=== PATIENT | male | born 1975 | race Caucasian/White ===

== ENCOUNTER 2022-12-28 17:31 | Emergency (ER) | payer BC ==
[2022-12-28 17:45] VITALS: RESP 18; TEMP 98.3
--- NOTE | 2022-12-28 19:13 | ED ---
General Adult HPI - General Chief complaint: Shortness of Breath Stated complaint: ANNAMARIA Time Seen by Provider: 12/28/22 18:07 Source: patient Mode of arrival: ambulatory Limitations: no limitations - History of Present Illness Initial comments: Patient is a 47-year-old male presenting with chief complaint of difficulty breathing. Patient states that he feels a lump in his throat that has been making it difficult to breathe. He states that he has to focus on breathing calmly and swallowing. Symptoms have been ongoing for about a week. He states that at times he feels like his voice is a bit shaky due to this discomfort. He is still able to eat and drink. No fevers or chills. No chest pain or palpitations. No wheezing. No nausea or vomiting. No abdominal pain. - Related Data Home Medications Medication Instructions Recorded Confirmed Albuterol Sulfate [Albuterol 2 puff PO RT-Q6H PRN 10/31/20 10/31/20 Sulfate Hfa] Buprenorphine HCl/Naloxone HCl 1 film SL DAILY 10/31/20 10/31/20 [Suboxone 8 mg-2 mg Sl Film] Montelukast [Singulair] 10 mg PO DAILY 10/31/20 10/31/20 Previous Rx's Medication Instructions Recorded Budesonide-Formot 160-4.5 Mcg 2 puff INHALATION BID 30 Days #1 11/01/20 [Symbicort 160-4.5 Mcg Inhaler] inhaler hydrOXYzine HCL [Atarax] 50 mg PO Q6H PRN #20 tablet 12/28/22 methylPREDNISolone Dose Pack 4 mg PO DIRECTED #1 packet 12/28/22 [Medrol Dose Pack] Allergies Allergy/AdvReac Type Severity Reaction Status Date / Time Penicillins Allergy Unknown Verified 12/28/22 17:45 Review of Systems ROS Statement: Those systems with pertinent positive or pertinent negative responses have been documented in the HPI. ROS Other: All systems not noted in ROS Statement are negative. Past Medical History Past Medical History: Asthma, COPD, Pneumonia History of Any Multi-Drug Resistant Organisms: None Reported Past Surgical History: Orthopedic Surgery Additional Past Surgical History / Comment(s): Skin graft left foot. Past Psychological History: No Psychological Hx Reported Smoking Status: Former smoker Past Alcohol Use History: Occasional Past Drug Use History: None Reported General Exam Limitations: no limitations General appearance: alert, in no apparent distress Head exam: Present: atraumatic, normocephalic, normal inspection Eye exam: Present: normal appearance, EOMI. Absent: scleral icterus, periorbital swelling Neck exam: Present: normal inspection, full ROM. Absent: tenderness, lymphadenopathy Respiratory exam: Present: normal lung sounds bilaterally. Absent: respiratory distress, wheezes, rales, rhonchi, stridor Cardiovascular Exam: Present: regular rate, normal rhythm, normal heart sounds. Absent: systolic murmur, diastolic murmur, rubs, gallop, clicks Neurological exam: Present: alert, oriented X3, CN II-XII intact Psychiatric exam: Present: normal affect, normal mood Skin exam: Present: warm, dry, intact, normal color. Absent: rash Course Vital Signs 12/28/22 12/28/22 12/28/22 17:38 18:11 21:51 Temperature 98.3 F Pulse Rate 59 L 56 L Respiratory 18 18 18 Rate Blood Pressure 146/86 134/79 O2 Sat by Pulse 96 99 Oximetry Medical Decision Making - Medical Decision Making Was pt. sent in by a medical professional or institution (, PA, MANAGER CAR, urgent care, hospital, or longterm...) When possible be specific @ -No Did you speak to anyone other than the patient for history (EMS, parent, family, police, friend...)? What history was obtained from this source @ -No Did you review nursing and triage notes (agree or disagree)? Why? @ -I reviewed and agree with nursing and triage notes Were old charts reviewed (outside hosp., previous admission, EMS record, old EKG, old radiological studies, urgent care reports/EKG's, longterm records)? Report findings @ -No old charts were reviewed Differential Diagnosis (chest pain, altered mental status, abdominal pain women, abdominal pain men, vaginal bleeding, weakness, fever, dyspnea, syncope, headache, dizziness, GI bleed, back pain, seizure, CVA, palpatations, mental health, musculoskeletal)? @ -MDM Differential Dyspnea: Anxiety, Coronary syndrome, arrhythmia, tamponade, asthma, COPD, pulmonary embolism, pneumonia, pneumothorax, pulmonary effusion, anaphylaxis, diabetic ketoacidosis, flailed chest, pulmonary contusion, diaphragmatic rupture, anemia, neuromuscular this is not meant to be an all-inclusive list. EKG interpreted by me (3pts min.). @ -As above X-rays interpreted by me (1pt min.). @ -None done CT interpreted by me (1pt min.). @ -Soft tissue neck CT shows no acute process U/S interpreted by me (1pt. min.). @ -None done What testing was considered but not performed or refused? (CT, X-rays, U/S, labs)? Why? @ -None What meds were considered but not given or refused? Why? @ -None Did you discuss the management of the patient with other professionals (professionals i.e. DrDonavon, PA, MANAGER CAR, lab, RT, psych nurse, group social worker, bleach machine operator, teacher, chief green officer, ed case manager)? Give summary @ -No Was smoking cessation discussed for >3mins.? @ -No Was critical care preformed (if so, how long)? @ -No Were there social determinants of health that impacted care today? How? (Homelessness, low income, unemployed, alcoholism, drug addiction, transportation, low edu. Level, literacy, decrease access to med. care, long term, rehab)? @ -No Was there de-escalation of care discussed even if they declined (Discuss DNR or withdrawal of care, Hospice)? DNR status @ -No What co-morbidities impacted this encounter? (DM, HTN, Smoking, COPD, CAD, Cancer, CVA, ARF, Chemo, Hep., AIDS, mental health diagnosis, sleep apnea, morbid obesity)? @ -None Was patient admitted / discharged? Hospital course, mention meds given and route, prescriptions, significant lab abnormalities, going to OR and other pertinent info. @ -Discharge. Patient is a 47-year-old male presenting with chief complaint of sensation of swelling in the throat that has been ongoing for about a week. At times it makes him feel short of breath and he states he has to focus when swallowing. Patient has been able to eat and drink throughout this time. Physical examination is unremarkable. Lab work shows WBC 11.8. Sodium 135. CT of soft tissue neck shows no acute process. Patient is educated on these findings. He is instructed to follow-up with GI for endoscopy. Also discussed the possibility of bolus sensation which may have a component of anxiety. He is prescribed hydroxyzine for anxiety. Follow-up with PCP. Report back to ER with any new or worsening symptoms. Discussed return parameters and answered all questions. Patient conveyed verbal understanding and agreed to the plan. I discussed this case in detail with my attending Dr. Will Undiagnosed new problem with uncertain prognosis? @ -No Drug Therapy requiring intensive monitoring for toxicity (Heparin, Nitro, Insulin, Cardizem)? @ -No Were any procedures done? @ -No Diagnosis/symptom? @ -Throat discomfort Acute, or Chronic, or Acute on Chronic? @ -Acute Uncomplicated (without systemic symptoms) or Complicated (systemic symptoms)? @ -uncomplicated Side effects of treatment? @ -No Exacerbation, Progression, or Severe Exacerbation? @ -No Poses a threat to life or bodily function? How? (Chest pain, [place], [place], pneumonia, PE, COPD, DKA, ARF, appy, cholecystitis, CVA, Diverticulitis, Homicidal, Suicidal, threat to staff... and all critical care pts) @ -No - Lab Data Result diagrams: 12/28/22 18:44 12/28/22 18:44 Lab Results 12/28/22 12/28/22 Range/Units 18:44 18:44 WBC 11.8 H (3.8-10.6) k/uL RBC 4.93 (4.30-5.90) m/uL Hgb 14.6 (13.0-17.5) gm/dL Hct 41.4 (39.0-53.0) % MCV 84.0 (80.0-100.0) fL MCH 29.7 (25.0-35.0) pg MCHC 35.4 (31.0-37.0) g/dL RDW 12.6 (11.5-15.5) % Plt Count 341 (150-450) k/uL MPV 7.2 Neutrophils % 75 % Lymphocytes % 16 % Monocytes % 7 % Eosinophils % 0 % Basophils % 0 % Neutrophils # 8.8 H (1.3-7.7) k/uL Lymphocytes # 1.9 (1.0-4.8) k/uL Monocytes # 0.8 (0-1.0) k/uL Eosinophils # 0.0 (0-0.7) k/uL Basophils # 0.0 (0-0.2) k/uL Sodium 135 L (137-145) mmol/L Potassium 4.8 (3.5-5.1) mmol/L Chloride 100 (98-107) mmol/L Carbon Dioxide 24 (22-30) mmol/L Anion Gap 11 mmol/L BUN 20 (9-20) mg/dL Creatinine 0.80 (0.66-1.25) mg/dL Est GFR (CKD-EPI)AfAm >90 (>60 ml/min/1.73 sqM) Est GFR (CKD-EPI)NonAf >90 (>60 ml/min/1.73 sqM) Glucose 106 H (74-99) mg/dL Calcium 9.5 (8.4-10.2) mg/dL Total Bilirubin 0.5 (0.2-1.3) mg/dL AST 24 (17-59) U/L ALT 30 (4-49) U/L Alkaline Phosphatase 90 (38-126) U/L Total Protein 6.9 (6.3-8.2) g/dL Albumin 4.5 (3.5-5.0) g/dL Disposition Clinical Impression: Dysphagia, Throat discomfort Disposition: HOME SELF-CARE Condition: Good Instructions (If sedation given, give patient instructions): Dysphagia (ED) Additional Instructions: Follow-up with PCP and GI. Report back to ER with any new or worsening symptoms. Prescriptions: hydrOXYzine HCL [Atarax] 50 mg PO Q6H PRN #20 tablet PRN Reason: Anxiety methylPREDNISolone Dose Pack [Medrol Dose Pack] 4 mg PO DIRECTED #1 packet Is patient prescribed a controlled substance at d/c from ED?: No Referrals: Tommy Aldana DO [Primary Care Provider] - 1-2 days Yesenia Davis MD [STAFF PHYSICIAN] - 1-2 days Time of Disposition: 21:20
[2022-12-28 19:30] LABS: Basophils % (A) 0 %; Eosinophils % (A) 0 %; HCT 41.4 % (39.0-53.0); HGB 14.6 gm/dL (13.0-17.5); Lymphocytes # (A) 1.9 k/uL (1.0-4.8); Lymphocytes % (A) 16 %; MCH 29.7 pg (25.0-35.0); MCHC 35.4 g/dL (31.0-37.0); Mean Platelet Volume 7.2; Monocytes # (A) 0.8 k/uL (0-1.0); Monocytes % (A) 7 %; Neutrophils # (A) 8.8 k/uL (1.3-7.7); Neutrophils % (A) 75 %; Platelet Count 341 k/uL (150-450); RBC 4.93 m/uL (4.30-5.90); RDW 12.6 % (11.5-15.5); WBC 11.8 k/uL (3.8-10.6)
[2022-12-28 20:05] LABS: ALT 30 U/L (4-49); AST 24 U/L (17-59); African American GFR (CKD) >90 (>60 ml/min/1.73 sqM); Albumin 4.5 g/dL (3.5-5.0); Alkaline Phosphatase 90 U/L (38-126); Anion Gap 11 mmol/L; Blood Urea Nitrogen 20 mg/dL (9-20); Calcium 9.5 mg/dL (8.4-10.2); Carbon Dioxide 24 mmol/L (22-30); Chloride 100 mmol/L (98-107); Glucose 106 mg/dL (74-99); Non-African American GFR(CKD) >90 (>60 ml/min/1.73 sqM); Potassium 4.8 mmol/L (3.5-5.1); Sodium 135 mmol/L (137-145); Total Bilirubin 0.5 mg/dL (0.2-1.3); Total Protein 6.9 g/dL (6.3-8.2)
--- NOTE | 2022-12-28 21:05 | CT ---
EXAMINATION TYPE: CT soft tissue neck w con DATE OF EXAM: 12/28/2022 HISTORY: sensation of foreign body. difficulty swallowing COMPARISON: None CT DLP: 360.7 mGycm. Automated Exposure Control for Dose Reduction was Utilized. TECHNIQUE: CT scan of the neck is performed with IV Contrast, patient injected with 100ml mL of Isovu e 300, axial images are obtained, coronal and sagittal reformatted images are reviewed. FINDINGS: Airway: No gross abnormality seen. Oral cavity, oropharynx, hypopharynx, esophagus: Unremarkable. Parotid/submandibular glands: No gross abnormality seen. Carotid/Vascular Structures: Negative. Osseous Structures: No focal findings. Other: No incidental findings. IMPRESSION: Negative examination.
[2022-12-28 21:52] VITALS: BP 134/79; PULSE 56
== END 2022-12-28 21:52 | disposition home or self-care (01) ==
LOC: EC 17:31
DX: R13.10 Dysphagia, unspecified (principal); J44.9 Chronic obstructive pulmonary disease, unspecified; Z87.891 Personal history of nicotine dependence; Z88.0 Allergy status to penicillin; Z79.899 Other long term (current) drug therapy
CPT/HCPCS: 36415; 93005; 80053; 85025; 70491; 99285; Q9967

== ENCOUNTER → 2023-03-19 | Outpatient (CLI) | payer BC ==
--- NOTE | 2023-03-19 10:18 | FL ---
ESOPHOGRAM. HISTORY: Dysphagia Esophagram was performed per the air contrast technique. The patient swallowed barium and effervesce nt crystals without difficulty or delay. Esophageal peristalsis and motility appear to be within normal limits. There is no evidence for filling defect, mass or diverticulum. No hiatal hernia seen. Subsequently single contrast cervical esophagram was performed which fails demonstrate evidence for a spiration penetration or mass. IMPRESSION: Unremarkable study.
== END | disposition home or self-care (01) ==
LOC: RADUSWWP 09:43
PROVIDERS: ATTEND Otolaryngology
DX: R13.10 Dysphagia, unspecified (principal); R49.0 Dysphonia; R05.9 Cough, unspecified
CPT/HCPCS: 74220

== ENCOUNTER 2023-04-23 06:44 | Observation (INO) | payer BC ==
[2023-04-23 07:13] LABS: Basophils % (A) 0 %; Eosinophils # (A) 0.1 k/uL (0-0.7); Eosinophils % (A) 1 %; HCT 41.3 % (39.0-53.0); HGB 14.4 gm/dL (13.0-17.5); Lymphocytes # (A) 3.2 k/uL (1.0-4.8); Lymphocytes % (A) 32 %; MCH 29.9 pg (25.0-35.0); MCHC 34.9 g/dL (31.0-37.0); MCV 85.8 fL (80.0-100.0); Mean Platelet Volume 7.1; Monocytes # (A) 0.4 k/uL (0-1.0); Monocytes % (A) 4 %; Neutrophils % (A) 61 %; Platelet Count 223 k/uL (150-450); RBC 4.81 m/uL (4.30-5.90); RDW 12.3 % (11.5-15.5); WBC 9.9 k/uL (3.8-10.6)
[2023-04-23 07:22] LABS: Partial Thromboplastin Time 23.4 sec (22.0-30.0); Prothrombin Time 10.4 sec (9.0-12.0)
--- NOTE | 2023-04-23 07:27 | XR ---
EXAMINATION TYPE: XR chest 2V DATE OF EXAM: 04/23/2023 COMPARISON: 10/31/2020 INDICATION: Difficulty breathing short of breath TECHNIQUE: Frontal and lateral views of the chest are obtained. FINDINGS: The heart size is normal. The pulmonary vasculature is normal. The lungs are clear. IMPRESSION: 1. No acute pulmonary process.
[2023-04-23 07:38] LABS: AST 26 U/L (17-59); African American GFR (CKD) >90 (>60 ml/min/1.73 sqM); Albumin 4.5 g/dL (3.5-5.0); Alkaline Phosphatase 72 U/L (38-126); Blood Urea Nitrogen 14 mg/dL (9-20); Calcium 9.5 mg/dL (8.4-10.2); Carbon Dioxide 24 mmol/L (22-30); Glucose 142 mg/dL (74-99); Non-African American GFR(CKD) >90 (>60 ml/min/1.73 sqM); Total Bilirubin 0.7 mg/dL (0.2-1.3); Total Protein 6.9 g/dL (6.3-8.2)
[2023-04-23] MEDS ORDERED: MAG HYDROX/AL HYDROX/SIMETH 30 ML, HYOSCYAMINE ELIXIR 10 ML, LIDOCAINE 2% GLYDO JELLY 1... PO STA ×3 (07:39)
[2023-04-23] MEDS ORDERED: IPRATROPIUM-ALBUTEROL 3 ML NEB INHALATION STA (07:39)
[2023-04-23 07:46] LABS: ALT 36 U/L (4-49)
[2023-04-23] MEDS ORDERED: SODIUM CHLORIDE 0.9% 1,000 ML IV STA ×2 (07:47→09:19)
--- NOTE | 2023-04-23 07:50 | ED ---
General Adult HPI - General Chief complaint: Shortness of Breath Stated complaint: SOB Time Seen by Provider: 04/23/23 07:15 Source: patient, RN notes reviewed, old records reviewed Mode of arrival: ambulatory Limitations: no limitations - History of Present Illness Initial comments: Patient is a 48-year-old male who presents emergency Department complaining of shortness of breath, difficulty swallowing ongoing since December of this year. Has not followed up with any specialist but has seen his primary care. His had multiple ER visits. Prior history of COPD/asthma and prior smoker but he has quit for the last 10 years. Does appear to have occupational exposure as he is exposed to fumes at work as well as when he states chemicals. 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 Unknown if this is related to his current symptoms. States he has a pleuritic substernal chest discomfort has been ongoing as well as a tightening in his throat which is difficult to swallow. Has shortness of breath on exertion. Denies any lower extremity edema, fevers, chills, significant cough. No known sick contacts. No diaphoretic episodes or nausea. His no other acute complaints at this time. Presents for evaluation. - Related Data Home Medications Medication Instructions Recorded Confirmed Buprenorphine-Nalox 8-2 mg Tab 1 tab SUBLINGUAL BID 04/23/23 04/23/23 [Suboxone 8-2 mg Tab] Pantoprazole [Protonix] 40 mg PO DAILY 04/23/23 04/23/23 Allergies Allergy/AdvReac Type Severity Reaction Status Date / Time Penicillins Allergy Unknown Verified 04/23/23 07:52 Childhood Review of Systems ROS Statement: Those systems with pertinent positive or pertinent negative responses have been documented in the HPI. Review of Systems: CONST: Denies fever EYES: Denies blurry vision ENT: Denies nasal congestion C/V: Endorses pleuritic chest pain RESP: Endorses exertional shortness of breath GI: Denies abdominal pain : Denies dysuria SKIN: Denies rash. MSK: Denies joint pain. NEURO: Denies headache ROS Other: All systems not noted in ROS Statement are negative. Past Medical History Past Medical History: Asthma, COPD, Pneumonia History of Any Multi-Drug Resistant Organisms: None Reported Past Surgical History: Orthopedic Surgery Additional Past Surgical History / Comment(s): Skin graft left foot. Past Psychological History: No Psychological Hx Reported Smoking Status: Former smoker Past Alcohol Use History: Occasional Past Drug Use History: None Reported General Exam - General Exam Comments Initial Comments: General: Appears in no acute distress. HEAD: Normal with no signs of head trauma. EYES: PERRLA, EOMI, conjunctiva normal, no discharge. ENT: Hearing grossly intact, normal oropharynx. RESPIRATORY: Clear breath sounds bilaterally. No wheezes, rales, or rhonchi. No hypoxia at rest. No increased work of breathing at rest. C/V: Regular rate and rhythm. S1 and S2 auscultated, no edema, peripheral pulses 2+ and intact throughout ABD: Abd is soft, nontender, nondistended EXT: Normal range of motion, no obvious deformity SKIN: No rashes or lesions observed on exposed skin. NEURO: Alert and oriented 4. Limitations: no limitations Course Vital Signs 04/23/23 04/23/23 04/23/23 06:44 07:00 07:52 Temperature 98.6 F Pulse Rate 76 74 102 H Respiratory 18 23 20 Rate Blood Pressure 164/103 148/84 145/90 O2 Sat by Pulse 99 97 97 Oximetry 04/23/23 04/23/23 08:08 08:17 Temperature Pulse Rate 65 67 Respiratory Rate Blood Pressure O2 Sat by Pulse Oximetry Medical Decision Making - Medical Decision Making Was pt. sent in by a medical professional or institution (, PA, NON FOOD RECEIVING CLERK, urgent care, hospital, or group home...) When possible be specific @ -No Did you speak to anyone other than the patient for history (EMS, parent, family, police, friend...)? What history was obtained from this source @ -No Did you review nursing and triage notes (agree or disagree)? Why? @ -I reviewed and agree with nursing and triage notes Were old charts reviewed (outside hosp., previous admission, EMS record, old EKG, old radiological studies, urgent care reports/EKG's, group home records)? Report findings @ -Reviewed old EKGs from 2020 as well as December 2022. Differential Diagnosis (chest pain, altered mental status, abdominal pain women, abdominal pain men, vaginal bleeding, weakness, fever, dyspnea, syncope, headache, dizziness, GI bleed, back pain, seizure, CVA, palpatations, mental health, musculoskeletal)? @ -Differential Dyspnea: Coronary syndrome, arrhythmia, tamponade, asthma, COPD, pulmonary embolism, pn eumonia, pneumothorax, pulmonary effusion, anaphylaxis, diabetic ketoacidosis, flailed chest, pulmonary contusion, diaphragmatic rupture, anemia, neuromuscular, this is not meant to be an all-inclusive list. EKG interpreted by me (3pts min.). @ -As above X-rays interpreted by me (1pt min.). @ -Chest x-ray reveals no obvious acute cardiopulmonary process. CT interpreted by me (1pt min.). @ -Chest CT reveals no obvious acute cardio pulmonary process. Does show chronic findings including emphysema. U/S interpreted by me (1pt. min.). @ -None done What testing was considered but not performed or refused? (CT, X-rays, U/S, la bs)? Why? @ -None What meds were considered but not given or refused? Why? @ -None Did you discuss the management of the patient with other professionals (professionals i.e. Dr., PA, NON FOOD RECEIVING CLERK, lab, RT, psych nurse, outreach and education social worker, florist's decorator, teacher, child support case officer, director case)? Give summary @ -Discussed with the admitting physician, Dr. Lundberg of [facility] who accepted the patient. Patient also requested he be admitted to [facility], who is Dr. Lundberg. Was smoking cessation discussed for >3mins.? @ -No Was critical care preformed (if so, how long)? @ -No Were there social determinants of health that impacted care today? How? (Homelessness, low income, unemployed, alcoholism, drug addiction, transportation, low edu. Level, literacy, decrease access to med. care, long term, rehab)? @ -No Was there de-escalation of care discussed even if they declined (Discuss DNR or withdrawal of care, Hospice)? DNR status @ -No What co-morbidities impacted this encounter? (DM, HTN, Smoking, COPD, CAD, Cancer, CVA, ARF, Chemo, Hep., AIDS, mental health diagnosis, sleep apnea, morbid obesity)? @ -None Was patient admitted / discharged? Hospital course, mention meds given and route, prescriptions, significant lab abnormalities, going to OR and other pertinent info. @ -Based on the patient's presentation and physical exam, I'm concerned for possible cardiac pulmonary etiology for his symptoms. This could be chronic. Could Be related to occupational exposure as well. Vital signs at rest within acceptable limits. We will is infected to the patient with a DuoNeb as well as a GI cocktail and obtained an ambulatory pulse ox. We will obtain a cardiopulmonary labs, chest x-ray, and likely CT chest. Patient was in agreement this plan. EKG shows no signs of acute ischemia and chronic changes.Patient's imaging including chest CT is unremarkable. Patient's labs show a normal d-dimer, and undetectable troponin, normal BNP. Patient appears mildly dehydrated with a lactic acidosis of 3.3. Vital signs negative. Remainder of the labs within acceptable limits. Patient's laboratory pulse ox, while normal results and the patient feeling dyspneic. Has clinical exertional dyspnea. Unknown etiology at this time. I discussed his workup with him. I recommended admission for echo as well as evaluation by pulmonology. He was in agreement this plan. We will continue fluid hydration for his lactic acidosis which I suspect is secondary to dehydration and not infection. Patient requests he be admitted to the [facility], which is also on for city call. I spoke with on-call physician Dr. Lundberg who accepted the admission. Undiagnosed new problem with uncertain prognosis? @ -Yes Drug Therapy requiring intensive monitoring for toxicity (Heparin, Nitro, Insulin, Cardizem)? @ -No Were any procedures done? @ -No Diagnosis/symptom? @ -Exertional dyspnea of unknown etiology, dehydration Acute, or Chronic, or Acute on Chronic? @ -Acute Uncomplicated (without systemic symptoms) or Complicated (systemic symptoms)? @ -Complicated Side effects of treatment? @ -none Exacerbation, Progression, or Severe Exacerbation] @ -no Poses a threat to life or bodily function? @ -Potentially - Lab Data Result diagrams: 04/23/23 06:59 04/23/23 06:59 Lab Results 04/23/23 04/23/23 04/23/23 Range/Units 06:59 06:59 06:59 WBC 9.9 (3.8-10.6) k/uL RBC 4.81 (4.30-5.90) m/uL Hgb 14.4 (13.0-17.5) gm/dL Hct 41.3 (39.0-53.0) % MCV 85.8 (80.0-100.0) fL MCH 29.9 (25.0-35.0) pg MCHC 34.9 (31.0-37.0) g/dL RDW 12.3 (11.5-15.5) % Plt Count 223 (150-450) k/uL MPV 7.1 Neutrophils % 61 % Lymphocytes % 32 % Monocytes % 4 % Eosinophils % 1 % Basophils % 0 % Neutrophils # 6.0 (1.3-7.7) k/uL Lymphocytes # 3.2 (1.0-4.8) k/uL Monocytes # 0.4 (0-1.0) k/uL Eosinophils # 0.1 (0-0.7) k/uL Basophils # 0.0 (0-0.2) k/uL PT 10.4 (9.0-12.0) sec INR 1.0 (<1.2) APTT 23.4 (22.0-30.0) sec D-Dimer (<0.60) mg/L FEU Sodium 134 L (137-145) mmol/L Potassium 3.5 (3.5-5.1) mmol/L Chloride 99 (98-107) mmol/L Carbon Dioxide 24 (22-30) mmol/L Anion Gap 11 mmol/L BUN 14 (9-20) mg/dL Creatinine 0.79 (0.66-1.25) mg/dL Est GFR (CKD-EPI)AfAm >90 (>60 ml/min/1.73 sqM) Est GFR (CKD-EPI)NonAf >90 (>60 ml/min/1.73 sqM) Glucose 142 H (74-99) mg/dL Plasma Lactic Acid Ismael (0.7-2.0) mmol/L Calcium 9.5 (8.4-10.2) mg/dL Total Bilirubin 0.7 (0.2-1.3) mg/dL AST 26 (17-59) U/L ALT 36 (4-49) U/L Alkaline Phosphatase 72 (38-126) U/L Troponin I (0.000-0.034) ng/mL NT-Pro-B Natriuret Pep pg/mL Total Protein 6.9 (6.3-8.2) g/dL Albumin 4.5 (3.5-5.0) g/dL Influenza Type A (PCR) (Not Detectd) Influenza Type B (PCR) (Not Detectd) RSV (PCR) (Not Detectd) SARS-CoV-2 (PCR) (Not Detectd) 04/23/23 04/23/23 04/23/23 Range/Units 06:59 06:59 06:59 WBC (3.8-10.6) k/uL RBC (4.30-5.90) m/uL Hgb (13.0-17.5) gm/dL Hct (39.0-53.0) % MCV (80.0-100.0) fL MCH (25.0-35.0) pg MCHC (31.0-37.0) g/dL RDW (11.5-15.5) % Plt Count (150-450) k/uL MPV Neutrophils % % Lymphocytes % % Monocytes % % Eosinophils % % Basophils % % Neutrophils # (1.3-7.7) k/uL Lymphocytes # (1.0-4.8) k/uL Monocytes # (0-1.0) k/uL Eosinophils # (0-0.7) k/uL Basophils # (0-0.2) k/uL PT (9.0-12.0) sec INR (<1.2) APTT (22.0-30.0) sec D-Dimer 0.24 (<0.60) mg/L FEU Sodium (137-145) mmol/L Potassium (3.5-5.1) mmol/L Chloride (98-107) mmol/L Carbon Dioxide (22-30) mmol/L Anion Gap mmol/L BUN (9-20) mg/dL Creatinine (0.66-1.25) mg/dL Est GFR (CKD-EPI)AfAm (>60 ml/min/1.73 sqM) Est GFR (CKD-EPI)NonAf (>60 ml/min/1.73 sqM) Glucose (74-99) mg/dL Plasma Lactic Acid Ismael 3.3 H* (0.7-2.0) mmol/L Calcium (8.4-10.2) mg/dL Total Bilirubin (0.2-1.3) mg/dL AST (17-59) U/L ALT (4-49) U/L Alkaline Phosphatase (38-126) U/L Troponin I <0.012 (0.000-0.034) ng/mL NT-Pro-B Natriuret Pep pg/mL Total Protein (6.3-8.2) g/dL Albumin (3.5-5.0) g/dL Influenza Type A (PCR) (Not Detectd) Influenza Type B (PCR) (Not Detectd) RSV (PCR) (Not Detectd) SARS-CoV-2 (PCR) (Not Detectd) 04/23/23 04/23/23 Range/Units 06:59 07:25 WBC (3.8-10.6) k/uL RBC (4.30-5.90) m/uL Hgb (13.0-17.5) gm/dL Hct (39.0-53.0) % MCV (80.0-100.0) fL MCH (25.0-35.0) pg MCHC (31.0-37.0) g/dL RDW (11.5-15.5) % Plt Count (150-450) k/uL MPV Neutrophils % % Lymphocytes % % Monocytes % % Eosinophils % % Basophils % % Neutrophils # (1.3-7.7) k/uL Lymphocytes # (1.0-4.8) k/uL Monocytes # (0-1.0) k/uL Eosinophils # (0-0.7) k/uL Basophils # (0-0.2) k/uL PT (9.0-12.0) sec INR (<1.2) APTT (22.0-30.0) sec D-Dimer (<0.60) mg/L FEU Sodium (137-145) mmol/L Potassium (3.5-5.1) mmol/L Chloride (98-107) mmol/L Carbon Dioxide (22-30) mmol/L Anion Gap mmol/L BUN (9-20) mg/dL Creatinine (0.66-1.25) mg/dL Est GFR (CKD-EPI)AfAm (>60 ml/min/1.73 sqM) Est GFR (CKD-EPI)NonAf (>60 ml/min/1.73 sqM) Glucose (74-99) mg/dL Plasma Lactic Acid Ismael (0.7-2.0) mmol/L Calcium (8.4-10.2) mg/dL Total Bilirubin (0.2-1.3) mg/dL AST (17-59) U/L ALT (4-49) U/L Alkaline Phosphatase (38-126) U/L Troponin I (0.000-0.034) ng/mL NT-Pro-B Natriuret Pep 60 pg/mL Total Protein (6.3-8.2) g/dL Albumin (3.5-5.0) g/dL Influenza Type A (PCR) Not Detected (Not Detectd) Influenza Type B (PCR) Not Detected (Not Detectd) RSV (PCR) Not Detected (Not Detectd) SARS-CoV-2 (PCR) Not Detected (Not Detectd) - EKG Data -: EKG Interpreted by Me EKG Comments: 12-lead Electrocardiogram Interpretation Note EKG was reviewed and interpreted by myself. 12-lead ECG performed at 0654 is interpreted by me as revealing normal sinus rhythm at a rate of 66 beats per minute. [place] is normal. CA interval is 116 ms, QRS duration is 117 ms, QTc is 398 ms.. There is a chronic T-wave inversion in lead III. More acute T-wave inversion in lead aVF not seen on prior EKGs when compared with EKG from December 2022. However the T-wave inversion is demonstrated on EKGs from November 2020. Also appears to be chronic. No other obvious acute ST segment or T-wave abnormalities to suggest acute ischemia at this time.. R wave progression across the precordium was satisfactory. Disposition Clinical Impression: Dyspnea, Dehydration Disposition: ADMITTED IP TO THIS HOSP Condition: Stable Referrals: Tommy Aldana DO [Primary Care Provider] - 1-2 days Time of Disposition: 09:01
[2023-04-23 08:06] LABS: Anion Gap 11 mmol/L; Chloride 99 mmol/L (98-107); Potassium 3.5 mmol/L (3.5-5.1); Sodium 134 mmol/L (137-145)
[2023-04-23] MEDS ORDERED: RX INFO: IV CONTRAST WAS GIVEN 1 EACH MISC MISCELLANE PRN (08:25)
--- NOTE | 2023-04-23 08:53 | CT ---
EXAMINATION TYPE: CT chest w con DATE OF EXAM: 04/23/2023 COMPARISON: Radiograph same day HISTORY: 48-year-old male shortness of breath, DYSPNEA TECHNIQUE: Contiguous axial scanning of the chest after the administration of 100 mL of Isovue 300. Coronal/sagittal reconstructions performed. CT DLP: 461.1mGycm. Automatic exposure control utilized for a dose reduction. FINDINGS: The heart is normal size without pericardial effusion. Ectatic aortic root at 3.8 cm. Bovine configuration to the aortic arch. No thoracic lymphadenopathy by CT size criteria. Mild dependent atelectasis posteriorly in the lungs. Minimal septal emphysema in the upper lungs. No consolidation or pleural effusion. Visualized upper abdomen shows a small hilar splenule. Bones: No osseous destructive process. IMPRESSION: 1. COPD with minimal emphysema. 2. Mild dependent atelectasis. Otherwise, no acute pulmonary process seen.
[2023-04-23] MEDS ORDERED: NALOXONE 0.4 MG/ML 1 ML VIAL IV PRN (09:20)
--- NOTE | 2023-04-23 10:29 | P.HPIM ---
History of Present Illness H&P Date: 04/23/23 History of Presenting Illness: Patient is a very pleasant 48-year-old male with a past medical history of asthma and former nicotine use. He presented to the emergency department with a chief complaint of shortness of breath and dysphagia. Patient reports the symptoms began approximately 4 months ago and progressively worsened. Patient reports shortness of breath at rest and worsening with exertion and/or position. In addition patient reports feeling as though something is stuck in his throat and/or chest described feeling as a lump that has resulted in difficulty swal lowing as well as painful swallowing at times. Patient reports he was evaluated back in December in the emergency department for similar complaint when this began and was referred to an ENT physician. Patient reports he followed up with the ENT doctor and underwent a barium swallow test which resulted is an unremarkable study. He reports despite evaluation he has progressively worsened and he is n ow experiencing pain in his lungs upon breathing accompanied by dizziness/lightheadedness. He denies having any increased cough but does state he has noticed thickened secretions feeling as though he is always needing to clear his throat. Patient's at bedside states his breathing has gotten so bad that he had to miss their planned family trip. Patient reports last night and throughout this morning his breathing seemed to worsen and just walking the trash can to the curb resulted in significant shortness of breath and diaphoresis with a prolonged recovery time. He reports his lungs actually hurt to breathe so his made him come back to the emergency department for evaluation. He denies any fevers, chills, headaches, palpitations, hemoptysis, nausea or vomiting, or experiencing any numbness/tingling/weakness/swelling in his extremities. He underwent full evaluation in the emergency department. EKG was completed showing sinus rhythm at 66 bpm with T-wave inversion in inferior leads 2, 3, and aVF and when compared to EKG completed 12/28/22 T-wave inversion was only present in lead III. Labs were completed and reviewed. CBC unremarkable. Coagulation profile normal findings including d-dimer of 0.24. BMP showing mild hyponatremia with sodium of 134. Glucose 142. Liver enzymes unremarkable. Troponin normal findings at less than 0.012 and a proBNP of 60 and lactic acid elevated at 3.3. Influenza A, influenza B, RSV, and Covid were all negative. Chest x-ray negative for acute cardiopulmonary process. CT chest showing minimal septal emphysema in the upper lungs and signs of COPD along with mild dependent atelectasis. Patient was admitted under our services of consultation to pulmonology, cardiology, and general surgery. Review of systems: Pertinent positives and negatives as discussed in HPI, a complete review of systems was performed and all other systems are negative. Physical exam: Vital signs reviewed and stable. General: Nontoxic, no distress and appears stated age. Derm: Skin warm and dry, normal coloration for ethnicity. Head: Atraumatic, normocephalic and symmetric. Eyes: EOMs intact, no lid lag, and anicteric sclera Mouth: no lip lesions, mucus membranes moist Cardiovascular: regular rate and rhythm with normal S1S2, no murmur, positive posterior tibial pulses bilaterally, and cap refill < 2 seconds. Lungs: Respirations even, regular, and unlabored on room air. Lungs CTA bilaterally, no rhonchi, no rales, no wheezing, and no accessory muscle usage. Abdominal: soft, nontender to palpation, no guarding, no appreciable or ganomegaly Ext: ROM intact. No gross muscle atrophy, no edema, no contractures Neuro: Speech clear, face symmetrical and CN II-XII grossly intact with no noted focal neuro deficits Psych: Alert and oriented to person, place, time, and situation. Appropriate and pleasant affect. Assessment and Plan of Care: Shortness of breath Exertional dyspnea EKG changes, T-wave inversion in inferior leads History of asthma and concerns of underlying COPD History of nicotine dependence, quit smoking 11 years ago -Consult to Pulmonology -Consult to Cardiology -Telemetry monitoring. -Duonebs scheduled four times daily along with every 2 hours as needed for SOB and/or wheezing -Steroids: Solu-Medrol 125 mg 1 dose -Echocardiogram to be completed Dysphasia and odynophagia -Gen. surgery consulted and discussed plan of care with general surgeon. -GI prophylaxis with Protonix 40 mg daily -Patient scheduled to undergo EGD tomorrow morning with Dr. Yadav. The patient is admitted with an anticipated less than 2 midnight stay for evaluation of shortness of breath CODE STATUS: Full code DVT prophylaxis: Lovenox Discussed with: patient, patient's , ED physician, general surgeon, and RN Anticipated discharge date: clinical course to determine Anticipated discharge place: : Home Patient was seen independently by Nurse Practitioner. This document was prepared using [employer] dictation software. Please allow for errors in log operations coordinator while rare they do occur. I reviewed the documentation as provided by the ROCK above, who is the original author of this note. I agree with the documented assessment and plan, with the following changes: none Past Medical History Past Medical History: Asthma, COPD, Pneumonia History of Any Multi-Drug Resistant Organisms: None Reported Past Surgical History: Orthopedic Surgery Additional Past Surgical History / Comment(s): Skin graft left foot. Past Psychological History: No Psychological Hx Reported Smoking Status: Former smoker Past Alcohol Use History: Occasional Past Drug Use History: None Reported - Past Family History Mother Additional Family Medical History / Comment(s): cardiac arrythmia Father Family Medical History: COPD Additional Family Medical History / Comment(s): healthy still living Medications and Allergies Home Medications Medication Instructions Recorded Confirmed Type Buprenorphine-Nalox 8-2 mg Tab 1 tab SUBLINGUAL BID 04/23/23 04/23/23 History [Suboxone 8-2 mg Tab] Pantoprazole [Protonix] 40 mg PO DAILY 04/23/23 04/23/23 History Allergies Allergy/AdvReac Type Severity Reaction Status Date / Time Penicillins Allergy Unknown Verified 04/23/23 07:52 Childhood Physical Exam Vitals: Vital Signs Temp Pulse Resp BP Pulse Ox 04/23/23 08:17 67 04/23/23 08:08 65 04/23/23 07:52 102 H 20 145/90 97 04/23/23 07:00 74 23 148/84 97 04/23/23 06:44 98.6 F 76 18 164/103 99 Intake and Output 04/22/23 04/23/23 04/23/23 22:59 06:59 14:59 Other: Weight 90.718 kg Results CBC & Chem 7: 04/23/23 06:59 04/23/23 06:59 Labs: Abnormal Lab Results - Last 24 Hours (Table) 04/23/23 04/23/23 Range/Units 06:59 06:59 Sodium 134 L (137-145) mmol/L Glucose 142 H (74-99) mg/dL Plasma Lactic Acid Ismael 3.3 H* (0.7-2.0) mmol/L
--- NOTE | 2023-04-23 11:24 | P.GSCN ---
History of Present Illness Consult date: 04/23/23 History of present illness: CHIEF COMPLAINT: Difficulty swallowing HISTORY OF PRESENT ILLNESS: This is a 48-year-old male who presented with complaints of difficulty swallowing 4 months. Sometimes he has pain with swallowing. He reports having more difficulty with solid foods. He reports after eating he'll get a lump in his throat and has to continuously drink water to help push. He denies any vomiting. Denies any regurgitation. He had a barium swallow done in March which was unremarkable. He's never had an EGD completed. Does have a prior history of smoking. Denies any alcohol use. Denies any weight loss. Patient does report taking Protonix daily. Denies any surgical history. Denies any abdominal pain. PAST MEDICAL HISTORY: See below PAST SURGICAL HISTORY: See below MEDICATIONS: See below ALLERGIES: See below SOCIAL HISTORY: No illicit drug use. REVIEW OF SYSTEMS: CONSTITUTIONAL: Denies fever or chills. HEENT: Denies blurred vision, vision changes, or eye pain. Denies hemoptysis CARDIOVASCULAR: Denies chest pain or pressure. RESPIRATORY: No shortness of breath. GASTROINTESTINAL: See HPI for pertinent findings HEMATOLOGIC: Denies bleeding disorders. GENITOURINARY: Denies any blood in urine or increased urinary frequency. SKIN: Denies pruitis. Denies rash. PHYSICAL EXAM: VITAL SIGNS: Reviewed GENERAL: Well-developed in no acute distress. ABDOMEN: Soft. Nondistended. Nontender NEUROLOGIC: Alert and oriented. Cranial nerves II through XII grossly intact. LABORATORY DATA: WBC 9.9 Hgb 14.4 platelets 223 Sodium 134 potassium 3.5 creatinine 0.79 Lactic acid 3.3 Influenza, RSV and Covid not detected IMAGING: CT chest COPD with minimal emphysema. Mildly dependent atelectasis. No acute pulmonary process. ASSESSMENT: 1. Dysphagia and odynophagia PLAN: -Patient scheduled for EGD tomorrow with Dr. 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 Signing provider agrees with the documented findings, assessment, and plan of care. Past Medical History Past Medical History: Asthma, COPD, Pneumonia History of Any Multi-Drug Resistant Organisms: None Reported Past Surgical History: Orthopedic Surgery Additional Past Surgical History / Comment(s): Skin graft left foot. Past Psychological History: No Psychological Hx Reported Smoking Status: Former smoker Past Alcohol Use History: Occasional Past Drug Use History: None Reported Medications and Allergies Home Medications Medication Instructions Recorded Confirmed Type Buprenorphine-Nalox 8-2 mg Tab 1 tab SUBLINGUAL BID 04/23/23 04/23/23 History [Suboxone 8-2 mg Tab] Pantoprazole [Protonix] 40 mg PO DAILY 04/23/23 04/23/23 History Allergies Allergy/AdvReac Type Severity Reaction Status Date / Time Penicillins Allergy Unknown Verified 04/23/23 07:52 Childhood Surgical - Exam Vital Signs Temp Pulse Resp BP Pulse Ox 98.6 F 76 18 164/103 99 04/23/23 06:44 04/23/23 06:44 04/23/23 06:44 04/23/23 06:44 04/23/23 06:44 Results - Labs 04/23/23 06:59 04/23/23 06:59 Abnormal Lab Results - Last 24 Hours (Table) 04/23/23 04/23/23 Range/Units 06:59 06:59 Sodium 134 L (137-145) mmol/L Glucose 142 H (74-99) mg/dL Plasma Lactic Acid Ismael 3.3 H* (0.7-2.0) mmol/L Diabetes panel 04/23/23 Range/Units 06:59 Sodium 134 L (137-145) mmol/L Potassium 3.5 (3.5-5.1) mmol/L Chloride 99 (98-107) mmol/L Carbon Dioxide 24 (22-30) mmol/L BUN 14 (9-20) mg/dL Creatinine 0.79 (0.66-1.25) mg/dL Glucose 142 H (74-99) mg/dL Calcium 9.5 (8.4-10.2) mg/dL AST 26 (17-59) U/L ALT 36 (4-49) U/L Alkaline Phosphatase 72 (38-126) U/L Total Protein 6.9 (6.3-8.2) g/dL Albumin 4.5 (3.5-5.0) g/dL Calcium panel 04/23/23 Range/Units 06:59 Calcium 9.5 (8.4-10.2) mg/dL Albumin 4.5 (3.5-5.0) g/dL Pituitary panel 04/23/23 Range/Units 06:59 Sodium 134 L (137-145) mmol/L Potassium 3.5 (3.5-5.1) mmol/L Chloride 99 (98-107) mmol/L Carbon Dioxide 24 (22-30) mmol/L BUN 14 (9-20) mg/dL Creatinine 0.79 (0.66-1.25) mg/dL Glucose 142 H (74-99) mg/dL Calcium 9.5 (8.4-10.2) mg/dL Adrenal panel 04/23/23 Range/Units 06:59 Sodium 134 L (137-145) mmol/L Potassium 3.5 (3.5-5.1) mmol/L Chloride 99 (98-107) mmol/L Carbon Dioxide 24 (22-30) mmol/L BUN 14 (9-20) mg/dL Creatinine 0.79 (0.66-1.25) mg/dL Glucose 142 H (74-99) mg/dL Calcium 9.5 (8.4-10.2) mg/dL Total Bilirubin 0.7 (0.2-1.3) mg/dL AST 26 (17-59) U/L ALT 36 (4-49) U/L Alkaline Phosphatase 72 (38-126) U/L Total Protein 6.9 (6.3-8.2) g/dL Albumin 4.5 (3.5-5.0) g/dL
[2023-04-23] MEDS ORDERED: IPRATROPIUM-ALBUTEROL 3 ML NEB INHALATION PRN (13:51)
[2023-04-23] MEDS ORDERED: methylPREDNISolone SOD SUCCI 125 MG/2 ML VIAL IV STA (13:52)
[2023-04-23] MEDS: IPRATROPIUM-ALBUTEROL 3 ML NEB INHALATION SCH ×2 (16:21→20:21)
--- NOTE | 2023-04-23 16:36 | CT ---
EXAMINATION TYPE: CT sinus wo con DATE OF EXAM: 04/23/2023 COMPARISON: None HISTORY: 48-year-old male shortness of breath, dyspnea, dysphagia CT DLP: 795 mGycm Automated exposure control for dose reduction was used. TECHNIQUE: Noncontrast axial views of the paranasal sinuses were obtained. Coronal and sagittal refor matted images are obtained. FINDINGS: PARANASAL SINUSES: There is moderate to severe mucosal thickening with opacification in the left maxillary sinus. Associ ated calcifications are present here. Scattered mild mucosal thickening ethmoid air cells. Otherwise, the sphenoid sinuses, frontal sinuses, right maxillary sinus appear well pneumatized There is no air-fluid level. Reactive larry- osteogenesis is not seen. There is no destruction of the osseous capone of the paranasal sinuses. THE NASAL CAVITY: The right osteomeatal complex is patent. There is prominent mucosal thickening at the left maxillary infundibulum. Leftward nasal septal deviation. The imaged brain and orbits are normal in appearance. Mastoid air cells and middle ear cavities are well pneumatized. Reformatted images confirm above findings. IMPRESSION: 1. Moderate to severe chronic left maxillary sinus disease. There are associated calcifications withi n the area of partial opacification. Correlate for superimposed aspergillus infection. 2. Scattered mild chronic ethmoid sinus disease. 3. Leftward nasal septal deviation.
--- NOTE | 2023-04-23 17:30 | P.CNPUL ---
History of Present Illness Consult date: 04/23/23 Reason for consult: dyspnea History of present illness: This is a 48-year-old male patient was having shortness of breath for the past 4 months that his breathing has been progressively getting worse. He shortness of breath is associated base other symptoms including difficulties in swallowing, difficulties in breathing through his nose and drainage, and episodes of fatigue and weakness and feeling diaphoretic. He also has discomfort across his chest mainly anterior and he feels better when he needs to the front. He is currently having difficulties to the point where he states that he is unable to do her activities of day-to-day life. Walking short distances such as on the make this patient short of breath and very fatigued and tired. He feels that he cannot catch his breath. He also states that his throat is irritated and he has a lump in his back of his throat and is having difficulties also in swallowing. No recurrent pneumonias. He is a nonsmoker. No 71 chronic lung disease. No pleurisy. No hemoptysis. No swelling lower extremity is. Does not utilize any form of respiratory medications or inhalers. 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 He has been infected with Covid 19 in the past and his current vital screening including Covid 19, RSV and influenza were all negative. His current pulse ox is 99% on room air oxygen. He does not desaturate with activity. Rest of the blood work shows that the risk of 9.9, hemoglobin is 14.4, d-dimer is at 0.24 in the coagulation profile was normal. His lactic acid level was at 3.3 at time of admission dropped down to 1.1. Electrolytes are normal. Liver function tests are normal. His chest x-rays within normal limits. CT angiogram is negative. EKG showing normal sinus rhythm. The patient undergone an echocardiogram and a cardiac stress test approximately 2 years ago and did fine without any major difficulties. He has no fever. No chills. No sputum production. No hemoptysis. No other complaints otherwise. Review of Systems Constitutional: Reports fatigue, Reports weakness Eyes: denies as per HPI, denies blurred vision, denies bulging eye, denies decreased vision, denies diplopia, denies discharge, denies dry eye, denies irritation, denies itching, denies pain, denies photophobia, denies loss of peripheral vision, denies loss of vision, denies tunnel vision/blind spots Ears: deny: decreased hearing, ear discharge, earache, tinnitus Ears, nose, mouth and throat: Reports as per HPI Breasts: absent: as per HPI, gynecomastia Cardiovascular: Reports decreased exercise tolerance, Reports dyspnea on exertion Respiratory: Reports dyspnea Gastrointestinal: Reports as per HPI (Dysphagia) Genitourinary: Reports as per HPI Musculoskeletal: Reports as per HPI Musculoskeletal: absent: ankle pain, ankle stiffness, ankle swelling, as per HPI, elbow pain, elbow stiffness, elbow swelling, foot pain, foot stiffness, foot swelling, hand pain, hand stiffness, hand swelling, hip pain, hip stiffness, hip swelling, knee pain, knee stiffness, knee swelling, shoulder pain, shoulder stiffness, shoulder swelling, wrist pain, wrist stiffness, wrist swelling Integumentary: Reports as per HPI Neurological: Reports as per HPI Psychiatric: Reports as per HPI Endocrine: Reports as per HPI Hematologic/Lymphatic: Reports as per HPI Allergic/Immunologic: Reports as per HPI Past Medical History History of Any Multi-Drug Resistant Organisms: None Reported Past Surgical History: Orthopedic Surgery Additional Past Surgical History / Comment(s): Skin graft left foot. Past Anesthesia/Blood Transfusion Reactions: No Reported Reaction Past Psychological History: No Psychological Hx Reported Smoking Status: Former smoker Past Alcohol Use History: Occasional Past Drug Use History: None Reported - Past Family History Mother Additional Family Medical History / Comment(s): cardiac arrythmia Father Family Medical History: COPD Additional Family Medical History / Comment(s): healthy still living Medications and Allergies Home Medications Medication Instructions Recorded Confirmed Type Buprenorphine-Nalox 8-2 mg Tab 1 tab SUBLINGUAL BID 04/23/23 04/23/23 History [Suboxone 8-2 mg Tab] Pantoprazole [Protonix] 40 mg PO DAILY 04/23/23 04/23/23 History Allergies Allergy/AdvReac Type Severity Reaction Status Date / Time Penicillins Allergy Unknown Verified 04/23/23 07:52 Childhood Physical Exam Vitals: Vital Signs Temp Pulse Pulse Resp BP BP Pulse Ox 04/23/23 16:35 72 04/23/23 16:23 68 04/23/23 15:00 97.9 F 68 16 119/78 99 04/23/23 12:56 97.9 F 60 16 152/100 99 04/23/23 12:06 57 L 19 131/89 94 L 04/23/23 11:30 60 14 143/100 94 L 04/23/23 11:00 63 12 140/90 95 04/23/23 10:30 60 15 152/99 04/23/23 10:00 65 15 142/112 97 04/23/23 09:30 67 13 150/97 94 L 04/23/23 09:00 72 12 152/90 95 04/23/23 08:30 72 13 160/113 96 04/23/23 08:17 67 04/23/23 08:08 65 04/23/23 08:00 77 16 145/90 97 04/23/23 07:52 102 H 20 145/90 97 04/23/23 07:30 79 18 148/84 96 04/23/23 07:00 74 23 148/84 97 04/23/23 06:44 98.6 F 76 18 164/103 99 Intake and Output 04/23/23 04/23/23 04/23/23 06:59 14:59 22:59 Other: Weight 90.718 kg 90.718 kg The patient appeared well nourished and normally developed. Vital signs as documented. Head exam is unremarkable. No scleral icterus or corneal arcus noted. Neck is without jugular venous distension, thyromegaly, or carotid bruits. Carotid upstrokes are brisk bilaterally. Lungs are clear to auscultation and percussion. Cardiac exam reveals the PMI to be normally sized and situated. Rhythm is regular. First and second heart sounds normal. No murmurs, rubs or gallops. Abdominal exam reveals normal bowel sounds, no masses, no organomegaly and no aortic enlargement. Extremities are nonedematous and both femoral and pe murray pulses are normal.Examination of the skin revealed no evidence of significant rashes, suspicious appearing nevi or other concerning lesions.Neurologically, the patient is awake and alert and the patient does not have any focal neurological deficit. Cranial nerves are essentially intact. Results - Laboratory Findings CBC and BMP: 04/23/23 06:59 04/23/23 06:59 PT/INR, D-dimer PT 10.4 sec (9.0-12.0) 04/23/23 06:59 INR 1.0 (<1.2) 04/23/23 06:59 D-Dimer 0.24 mg/L FEU (<0.60) 04/23/23 06:59 Abnormal lab findings: Abnormal Labs 04/23/23 04/23/23 06:59 06:59 Sodium 134 L Glucose 142 H Plasma Lactic Acid Ismael 3.3 H* - Diagnostic Findings Chest x-ray: image reviewed CT scan - chest: image reviewed Assessment and Plan Plan: Subacute shortness of breath, unexplained by physical findings. No identifiable pulmonary pathology at this point in time. Chest x-ray, CT of the chest, and lung examination are all within normal limits. No signs of any oxygen desaturations. EKG is within normal limits. Previous cardiac workup that was done on 11/01/2020 including an echocardiogram and a cardiac stress test were all within normal limits. The patient back then had a mild to moderate degree of mitral regurgitation. Blood work is essentially within normal limits. 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 Is exposed to various industrial chemicals including metal related fumes. Dysphagia, etiology is not clear and the modified barium swallow that was done on 03/19/2023 was within normal limits. Difficulties in breathing through his nose and nasal septal deviation. 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
[2023-04-23] MEDS ORDERED: HYDROcodone/APAP 5-325MG 1 EACH TAB PO PRN (17:57)
[2023-04-23] MEDS ORDERED: NON FORMULARY DRUG (Buprenorphine-Nalox 8-2 Mg Tab 1 EACH Tablet) SUBLINGUAL SCH (21:00)
[2023-04-23] MEDS: BUPRENORPHINE-NALOX 8-2 MG TAB 1 EACH TAB.SUBL SL SCH (21:12)
[2023-04-24] MEDS ORDERED: PROPOFOL 10 MG/ML 20 ML VIAL IV ONE (08:00)
[2023-04-24] MEDS ORDERED: LACTATED RINGERS 1,000 ML IV ONE (08:05)
--- NOTE | 2023-04-24 08:23 | P.PCN ---
Date of Procedure: 04/24/23 Procedure(s) Performed: Preoperative Dx: Dysphagia Postoperative Dx: Mild gastritis Procedure: EGD with Bx Anesthesia: Sedation Endoscopist: Dr. Yadav Specimens: Antrum Endoscopic Procedure: The patient was on the endoscopy table in the left decubitus position. The Olympus gastroscope was inserted into the oropharynx and passed under direct visualization to the region of the third portion of the duodenum. From that point the scope was slowly withdrawn inspecting all surfaces carefully. There were no neoplastic inflammatory or polypoid lesions throughout the duodenum. The pylorus was widely patent. The stomach was carefully inspected. There was mild gastritis present. A biopsy of the antrum took place to rule out H. pylori. Retroflexion revealed a normal hiatus. The esophagus was then carefully examined. There were no neoplastic inflammatory or polypoid lesions throughout the visualized esophagus. The patient was then taken to the recovery room in stable condition per anesthesia guidelines. Recommendations: Await biopsy results. Continue workup of the patient's dyspnea and dysphagia. Consider modified barium swallow it persists.
[2023-04-24] MEDS: IPRATROPIUM-ALBUTEROL 3 ML NEB INHALATION SCH ×4 (08:51→19:54)
[2023-04-24 08:56] LABS: Basophils # (A) 0.02 X 10*3/uL (0.00-0.10); Basophils % (A) 0.1 %; Eosinophils # (A) 0 X 10*3/uL (0.04-0.35); Eosinophils % (A) 0 %; HCT 40.9 % (39.6-50.0); HGB 14.3 d/dL (13.0-17.0); Lymphocytes % (A) 6.5 %; MCH 29.6 pg (27.0-32.0); MCV 84.7 FL (80.0-97.0); Mean Platelet Volume 9.6 FL (9.5-12.2); Monocytes # (A) 0.72 X 10*3/uL (0.20-1.00); Monocytes % (A) 4.7 %; NRBC Per 100 WBC 0 X 10*3/uL (0.00-0.01); Neutrophils # (A) 13.44 X 10*3/uL (1.80-7.70); Neutrophils % (A) 87.9 %; Platelet Count 295 X 10*3/uL (140-440); RBC 4.83 X 10*6/uL (4.40-5.60); RDW 11.9 % (11.5-14.5)
[2023-04-24 09:06] LABS: BUN/Creat Ratio 19.22 Ratio (12.00-20.00); Blood Urea Nitrogen 17.3 mg/dL (9.0-27.0); Calcium 9.8 mg/dL (8.7-10.3); Chloride 101 mmol/L (96-109); Glucose 111 mg/dL (70-110); Potassium 4.8 mmol/L (3.5-5.5); Sodium 138 mmol/L (135-145)
--- NOTE | 2023-04-24 09:32 | P.CRDCN ---
History of Present Illness Consult date: 04/24/23 Reason for Consult (text): EKG changes, exertional dyspnea History of present illness: History of present illness: This is a 48-year-old male with no previous cardiac history, does not follow with a simonizer. He has a past medical history of gastroesophageal reflux disease. We have been asked to evaluate the patient for EKG changes and exertional dyspnea. Patient denies having any chest pain. He states for the past 4 months he's had difficulty breathing with shortness of breath and more positional. He feels like he has a lump sensation in his throat. He has difficulty breathing with ambulation. Breathing is positional and he needs to lean forward in order to breathe normally. He denies having any cough. No palpitations. No lightheadedness or dizziness.patient's states he has been on multiple courses of prednisone for sinus problems. He is scheduled to see ENT today. He is also followed by pulmonary medicine and is scheduled for EGD today with Dr. Yadav for difficulty swallowing. EKG sinus rhythm with T-wave inversions in the inferior leads Chest x-ray: no acute process CT of the chest COPD with minimal emphysema. Mild dependent atelectasis. Otherwise no acute process. CT sinuses moderate to severe chronic left maxillary sinus disease. Correlate for Aspergillus infection. Scattered mild chronic ethmoid sinus disease. Septal deviation. CBC normal limits. Carbon monoxide 1.1. INR 1.0, d-dimer 0.24. Sodium 134, potassium 3.5, BUN 14 creatinine 0.79. Lactic acid 3.3 followed by 1.1. Tropon in negative 1. Liver function tests normal. ProBNP 60. Influenza A, influenza B, RSV, Covid 19 not detected. Home cardiac medications: None Review Of Systems: At the time of my evaluation: Constitutional: No fever, no chills. No weakness, fatigue or lethargy. EENT: No headache. No dizziness. Lungs: Reports difficulty breathing, cough, no sputum production. No wheezing. Reports dyspnea on exertion Cardiovascular: No chest pain, no lower extremity edema. No palpitations. No paroxysmal nocturnal dyspnea. No orthopnea. No lightheadedness or dizziness. No syncopal episodes. Abdominal: No abdominal pain. No nausea, vomiting. Musculoskeletal: No myalgias. No muscle weakness, no frequent falls. Integumentary: No wounds. No rash. No unusual bruising. Neurologic: No aphasia. No facial droop. No change in mentation. Physical examination: Gen: This is a 48-year-old male. He is resting in a chair. He appears to be somewhat uncomfortable due to positioning. Patient is basically sitting in a tripod position leaning forward. VS: reviewed blood pressure 114/67, heart rate in the 70s, pulse ox 95% on room air, afebrile. HEENT: Head is atraumatic, normocephalic. Pupils equal, round. Sclerae is anicteric. NECK: Supple. No JVD. LUNGS: Clear to auscultation. No wheezes or rhonchi. No intercostal retractions. HEART: Regular rate and rhythm. No murmur. ABDOMEN: Soft No tenderness. EXTREMITIES: No pedal edema. No calf tenderness. NEUROLOGICAL: Patient is awake, alert and oriented x3. Assessment: EKG changes with T-wave inversion in the inferior leads Difficulty breathing, followed by pulmonary medicine Dysphagia, scheduled for EGD today Chronic sinusitis, possible Aspergillus infection on CAT scan Plan: Obtain 2-D echocardiogram and Doppler study to assess cardiac structure and function Further recommendations to follow based upon clinical course Thank you kindly for this consultation. Nurse practitioner note has been reviewed, I agree with documented findings and plan of care. Patient was seen and examined. Past Medical History Past Medical History: Asthma, COPD, Pneumonia History of Any Multi-Drug Resistant Organisms: None Reported Past Surgical History: Orthopedic Surgery Additional Past Surgical History / Comment(s): Skin graft left foot. Past Anesthesia/Blood Transfusion Reactions: No Reported Reaction Past Psychological History: No Psychological Hx Reported Smoking Status: Former smoker Past Alcohol Use History: Occasional Past Drug Use History: None Reported - Past Family History Mother Additional Family Medical History / Comment(s): cardiac arrythmia Father Family Medical History: COPD Additional Family Medical History / Comment(s): healthy still living Medications and Allergies Home Medications Medication Instructions Recorded Confirmed Type Buprenorphine-Nalox 8-2 mg Tab 1 tab SUBLINGUAL BID 04/23/23 04/23/23 History [Suboxone 8-2 mg Tab] Pantoprazole [Protonix] 40 mg PO DAILY 04/23/23 04/23/23 History Allergies Allergy/AdvReac Type Severity Reaction Status Date / Time Penicillins Allergy Unknown Verified 08/21/23 07:52 Childhood Physical Exam Vitals: Vital Signs Temp Pulse Pulse Resp BP BP Pulse Ox 04/24/23 02:35 98.1 F 73 15 114/67 95 04/23/23 20:33 72 04/23/23 20:21 78 04/23/23 19:05 98.7 F 66 15 146/82 95 04/23/23 16:35 72 04/23/23 16:23 68 04/23/23 15:00 97.9 F 68 16 119/78 99 04/23/23 12:56 97.9 F 60 16 152/100 99 04/23/23 12:06 57 L 19 131/89 94 L 04/23/23 11:30 60 14 143/100 94 L 04/23/23 11:00 63 12 140/90 95 04/23/23 10:30 60 15 152/99 04/23/23 10:00 65 15 142/112 97 04/23/23 09:30 67 13 150/97 94 L 04/23/23 09:00 72 12 152/90 95 04/23/23 08:30 72 13 160/113 96 04/23/23 08:17 67 04/23/23 08:08 65 04/23/23 08:00 77 16 145/90 97 04/23/23 07:52 102 H 20 145/90 97 04/23/23 07:30 79 18 148/84 96 Intake and Output 04/23/23 04/24/23 04/24/23 22:59 06:59 14:59 Other: # Voids 1 1 Results 04/24/23 06:02 04/24/23 06:02 Cardiac Enzymes 04/23/23 04/23/23 Range/Units 06:59 06:59 AST 26 (17-59) U/L Troponin I <0.012 (0.000-0.034) ng/mL Coagulation 04/23/23 Range/Units 06:59 PT 10.4 (9.0-12.0) sec APTT 23.4 (22.0-30.0) sec Comprehensive Metabolic Panel 04/23/23 Range/Units 06:59 Sodium 134 L (137-145) mmol/L Potassium 3.5 (3.5-5.1) mmol/L Chloride 99 (98-107) mmol/L Carbon Dioxide 24 (22-30) mmol/L BUN 14 (9-20) mg/dL Creatinine 0.79 (0.66-1.25) mg/dL Glucose 142 H (74-99) mg/dL Calcium 9.5 (8.4-10.2) mg/dL AST 26 (17-59) U/L ALT 36 (4-49) U/L Alkaline Phosphatase 72 (38-126) U/L Total Protein 6.9 (6.3-8.2) g/dL Albumin 4.5 (3.5-5.0) g/dL Current Medications Generic Name Dose Route Start Last Admin Trade Name Freq PRN Reason Stop Dose Admin Hydrocodone Bitart/Acetaminophen 1 each 04/23/23 17:57 Hydrocodone/Apap 5-325mg 1 Each Tab PO Q4HR PRN Moderate Pain (Scale 4 to 6) Albuterol/Ipratropium 3 ml 04/23/23 13:51 Ipratropium-Albuterol 3 Ml Neb INHALATION RT-Q2H PRN Shortness Of Breath Or Wheezing Albuterol/Ipratropium 3 ml 04/23/23 16:00 04/23/23 20:21 Ipratropium-Albuterol 3 Ml Neb INHALATION 3 ml RT-QID ROLANDO Administration Buprenorphine/Naloxone 1 each 04/23/23 21:00 04/23/23 21:12 Buprenorphine-Nalox 8-2 Mg Tab 1 Each Tab.Subl SL Not Given BID ROLANDO Enoxaparin Sodium 40 mg 04/24/23 09:00 Enoxaparin 40 Mg/0.4 Ml Syringe SQ DAILY [facility] Miscellaneous Information 1 each 04/23/23 08:25 Rx Info: Iv Contrast Was Given 1 Each Misc MISCELLANE 04/25/23 08:25 DAILY PRN Per Protocol Naloxone HCl 0.2 mg 04/23/23 09:20 Naloxone 0.4 Mg/Ml 1 Ml Vial IV Q2M PRN Opioid Reversal Pantoprazole Sodium 40 mg 04/24/23 09:00 Pantoprazole 40 Mg Tablet PO DAILY [facility] Intake and Output 04/23/23 04/24/23 04/24/23 22:59 06:59 14:59 Other: # Voids 1 1 04/23/23 06:59 04/23/23 06:59
[2023-04-24] MEDS: PANTOPRAZOLE 40 MG TABLET PO SCH (09:57)
[2023-04-24] MEDS: BUPRENORPHINE-NALOX 8-2 MG TAB 1 EACH TAB.SUBL SL SCH ×2 (09:57→21:50)
[2023-04-24] MEDS: ENOXAPARIN 40 MG/0.4 ML SYRINGE SQ SCH (09:57)
[2023-04-24 10:03] LABS: Erythrocyte Sedimentation Rate 7 mm/Hr (0-15)
--- NOTE | 2023-04-24 11:07 | P.PN ---
Subjective Progress Note Date: 04/24/23 Hospital Course: Patient is a very pleasant 48-year-old male with a past medical history of asthma and former nicotine use. He presented to the emergency department with a chief complaint of shortness of breath and dysphagia. Patient reports the symptoms began approximately 4 months ago and progressively worsened. Patient reports shortness of breath at rest and worsening with exertion and/or position. In addition patient reports feeling as though something is stuck in his throat and/or chest described feeling as a lump that has resulted in difficulty swallowing as well as painful swallowing at times. He underwent full evaluation in the emergency department. EKG was completed showing sinus rhythm at 66 bpm with T-wave inversion in inferior leads 2, 3, and aVF and when compared to EKG completed 12/28/22 T-wave inversion was only present in lead III. Labs were completed and reviewed. CBC unremarkable. Coagulation profile normal findings including d-dimer of 0.24. BMP showing mild hyponatremia with sodium of 134. Glucose 142. Liver enzymes unremarkable. Troponin normal findings at less than 0.012 and a proBNP of 60 and lactic acid elevated at 3.3. Influenza A, influenza B, RSV, and Covid were all negative. Chest x-ray negative for acute cardiopulmonary process. CT chest showing minimal septal emphysema in the upper lungs and signs of COPD along with mild dependent atelectasis. Patient was admitted under our services of consultation to pulmonology, cardiology, and general surgery. Patient was evaluated by practice coordinator and a CT sinuses was ordered. CT sinuses showing moderate to severe chronic left maxillary sinus disease with associated calcifications in the area of partial opacification concerning for possible superimposed Aspergillus infection with scattered mild chronic ethmoid sinus disease and leftward nasal septal deviation. Consult was placed to ENT. Patient underwent EGD with Dr. Yadav which revealed mild gastritis and a biopsy of the antrum was taken at that time. Physical exam: Vital signs reviewed and stable. General: Nontoxic, no distress and appears stated age. Derm: Skin warm and dry, normal coloration for ethnicity. Head: Atraumatic, normocephalic and symmetric. Eyes: EOMs intact, no lid lag, and anicteric sclera Mouth: no lip lesions, mucus membranes moist Cardiovascular: regular rate and rhythm with normal S1S2, no murmur, positive posterior tibial pulses bilaterally, and cap refill < 2 seconds. Lungs: Respirations even, regular, and unlabored on room air. Lungs CTA bilaterally, no rhonchi, no rales, no wheezing, and no accessory muscle usage. Abdominal: soft, nontender to palpation, no guarding, no appreciable organomegaly Ext: ROM intact. No gross muscle atrophy, no edema, no contractures Neuro: Speech clear, face symmetrical and CN II-XII grossly intact with no noted focal neuro deficits Psych: Alert and oriented to person, place, time, and situation. Appropriate and pleasant affect. Assessment and Plan of Care: Shortness of breath Exertional dyspnea EKG changes, T-wave inversion in inferior leads Septal deviation History of asthma and concerns of underlying COPD History of nicotine dependence, quit smoking 11 years ago -Pulmonology following and placed order for CT sinuses showing moderate to severe chronic left maxillary sinus disease with associated calcifications in the area of partial opacification concerning for possible superimposed Aspergillus infection with scattered mild chronic ethmoid sinus disease and leftward nasal septal deviation. -Consult was placed to ENT secondary to septal deviation and shortness of breath -Cardiology evaluated in agreement with echocardiogram, awaiting further recommendations. -Telemetry monitoring. -Duonebs scheduled four times daily along with every 2 hours as needed for SOB and/or wheezing -Steroids: Solu-Medrol 125 mg 1 dose -Echocardiogram was completed and awaiting results at this time. Dysphasia and odynophagia -Gen. surgery consulted and discussed plan of care with general surgeon. -Continue GI prophylaxis with Protonix 40 mg daily -Patient underwent EGD this morning with Dr. Yadav. Procedure report stating findings of mild gastritis and a biopsy of the antrum was taken at that time. CODE STATUS: Full code DVT prophylaxis: Lovenox Discussed with: patient, patient's , practice coordinator, general surgeon, and RN Anticipated discharge date: clinical course to determine Anticipated discharge place: : Home Patient was seen independently by Nurse Practitioner. This document was prepared using [employer] dictation software. Please allow for errors in visual merchandising assistant while rare they do occur. I reviewed the documentation as provided by the ROCK above, who is the original author of this note. I agree with the documented assessment and plan, with the following changes: none Objective - Vital Signs Vital signs: Vital Signs Temp 98.1 F 04/24/23 02:35 Pulse 73 04/24/23 02:35 Resp 15 04/24/23 02:35 BP 114/67 04/24/23 02:35 Pulse Ox 95 04/24/23 02:35 FiO2 Intake & Output 04/23/23 04/24/23 04/24/23 18:59 06:59 18:59 Intake Total 300 Balance 300 Weight 90.718 kg Intake: IV 300 Other: # Voids 2 1 - Labs CBC & Chem 7: 04/24/23 06:02 04/24/23 06:02
--- NOTE | 2023-04-24 14:13 | P.PN ---
Subjective Progress Note Date: 04/24/23 This is a 48-year-old male patient was having shortness of breath for the past 4 months that his breathing has been progressively getting worse. He shortness of breath is associated base other symptoms including difficulties in swallowing, difficulties in breathing through his nose and drainage, and episodes of fatigue and weakness and feeling diaphoretic. He also has discomfort across his chest mainly anterior and he feels better when he needs to the front. He is currently having difficulties to the point where he states that he is unable to do her activities of day-to-day life. Walking short distances such as on the make this patient short of breath and very fatigued and tired. He feels that he cannot catch his breath. He also states that his throat is irritated and he has a lump in his back of his throat and is having difficulties also in swallowing. No recurrent pneumonias. He is a nonsmoker. No 70 chronic lung disease. No pleurisy. No hemoptysis. No swelling lower extremity is. Does not utilize any form of respiratory medications or inhalers. 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 He has been infected with Covid 19 in the past and his current vital screening including Covid 19, RSV and influenza were all negative. His current pulse ox is 99% on room air oxygen. He does not desaturate with activity. Rest of the blood work shows that the risk of 9.9, hemoglobin is 14.4, d-dimer is at 0.24 in the coagulation profile was normal. His lactic acid level was at 3.3 at time of admission dropped down to 1.1. Electrolytes are normal. Liver function tests are normal. His chest x-rays within normal limits. CT angiogram is negative. EKG showing normal sinus rhythm. The patient undergone an echocardiogram and a cardiac stress test approximately 2 years ago and did fine without any major difficulties. He has no fever. No chills. No sputum production. No hemoptysis. No other complaints otherwise. On today's evaluation of a 2022, the patient's condition is essentially unchanged. EGD was completed. Findings of essentially benign. Abdomen is level was low. Meanwhile, a CAT scan of the sinuses was obtained and the patient was found to have moderate to severe chronic left regular sinus disease and there was associated calcification within the area with partial opacification. This always raises the concern for Aspergillus infection. There is also scattered mild chronic ethmoid sinus disease and the septal deviation. ENT consultation has been obtained. His blood work today shows a white second of 15.3 with a hemoglobin of 14, electrolytes are normal, renal function is normal. Objective - Vital Signs Vital signs: Vital Signs Temp 97.6 F 04/24/23 08:33 Pulse 76 04/24/23 11:56 Resp 16 04/24/23 07:00 BP 144/80 04/24/23 09:17 Pulse Ox 97 04/24/23 08:33 FiO2 Intake & Output 04/23/23 04/24/23 04/24/23 18:59 06:59 18:59 Intake Total 300 Balance 300 Weight 90.718 kg Intake: IV 300 Other: # Voids 2 1 2 - Exam The patient appeared well nourished and normally developed. Vital signs as documented. Head exam is unremarkable. No scleral icterus or corneal arcus noted. Neck is without jugular venous distension, thyromegaly, or carotid bruits. Carotid upstrokes are brisk bilaterally. Lungs are clear to auscultation and percussion. Cardiac exam reveals the PMI to be normally sized and situated. Rhythm is regular. First and second heart sounds normal. No murmurs, rubs or gallops. Abdominal exam reveals normal bowel sounds, no masses, no organomegaly and no aortic enlargement. Extremities are nonedematous and both femoral and pedal pulses are normal.Examination of the skin revealed no evidence of significant rashes, suspicious appearing nevi or other concerning lesions.Neurologically, the patient is awake and alert and the patient does not have any focal neurological deficit. Cranial nerves are essentially intact. - Labs CBC & Chem 7: 04/24/23 06:02 04/24/23 06:02 Labs: Abnormal Lab Results - Last 24 Hours (Table) 04/24/23 04/24/23 Range/Units 06:02 06:02 WBC 15.30 H (4.50-10.00) X 10*3/uL Neutrophils # 13.44 H (1.80-7.70) X 10*3/uL Eosinophils # 0 L (0.04-0.35) X 10*3/uL Anion Gap 14.00 H (4.00-12.00) mmol/L Glucose 111 H (70-110) mg/dL Assessment and Plan Plan: Subacute shortness of breath, unexplained by physical findings. No identifiable pulmonary pathology at this point in time. Chest x-ray, CT of the chest, and lung examination are all within normal limits. No signs of any oxygen desaturations. EKG is within normal limits. Previous cardiac workup that was done on 11/01/2020 including an echocardiogram and a cardiac stress test were all within normal limits. The patient back then had a mild to moderate degree of mitral regurgitation. Blood work is essentially within normal limits. 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 Is exposed to various industrial chemicals including metal related fumes. It is possible that the patient has a chronic infection and is experiencing systemic illness and one concern is maxillary sinus infection based on the CAT scan findings. Awaiting an echocardiogram Dysphagia, etiology is not clear and the modified barium swallow that was done on 03/19/2023 was within normal limits. EGD is normal Difficulties in breathing through his nose and nasal septal deviation. 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 Rule out Aspergillus infection. Scattered mild chronic ethmoid sinus disease. Plan Check an echocardiogram, results are still pending for now O CAT scan of the sinuses reviewed ENT consultation Check Aspergillus titers Check sedimentation rate check carbon monoxide level was normal Check heavy metal profile pending General surgery to evaluate the swallowing the patient underwent an EGD that showed mild gastritis We'll continue to follow
[2023-04-24] MEDS: ALPRAZolam 0.5 MG TAB PO PRN (16:10)
--- NOTE | 2023-04-24 18:25 | P.GSCN ---
History of Present Illness Consult date: 04/24/23 Reason for Consult: Nasal congestion postnasal drainage Requesting physician: Marjorie Vasquez History of present illness: This is a 48-year-old white male who has had long-standing history of nasal congestion and postnasal drainage. He is also experiencing some intermittent shortness of breath issues and was admitted because of shortness of breath. Complaining of some dysphagia. EGD performed which was negative. Family otolaryngologic standpoint, the patient complains of nasal congestion, thick drainage and a fullness to the back of the throat. Occasionally he wakes with some blood. 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 Denies ALLERGIES. Shortness of breath is a significant issue which is currently being worked up by pulmonary. CAT scan of the sinuses reveals a left noninvasive fungal sinusitis. Suspect mold ALLERGIES. Review of Systems - Constitutional Reports as per HPI - EENT Ears, nose, mouth and throat: Reports as per HPI - Cardiovascular Reports as per HPI - Respiratory Reports as per HPI - Gastrointestinal Reports as per HPI - Musculoskeletal Reports as per HPI - Integumentary Reports as per HPI - Neurological Reports as per HPI - Psychiatric Reports as per HPI - Endocrine Reports as per HPI Past Medical History Past Medical History: Asthma, COPD, Pneumonia History of Any Multi-Drug Resistant Organisms: None Reported Past Surgical History: Orthopedic Surgery Additional Past Surgical History / Comment(s): Skin graft left foot. Past Anesthesia/Blood Transfusion Reactions: No Reported Reaction Past Psychological History: No Psychological Hx Reported Smoking Status: Former smoker Past Alcohol Use History: Occasional Past Drug Use History: None Reported - Past Family History Mother Additional Family Medical History / Comment(s): cardiac arrythmia Father Family Medical History: COPD Additional Family Medical History / Comment(s): healthy still living Medications and Allergies Home Medications Medication Instructions Recorded Confirmed Type Buprenorphine-Nalox 8-2 mg Tab 1 tab SUBLINGUAL BID 04/23/23 04/23/23 History [Suboxone 8-2 mg Tab] Pantoprazole [Protonix] 40 mg PO DAILY 04/23/23 04/23/23 History Allergies Allergy/AdvReac Type Severity Reaction Status Date / Time Penicillins Allergy Unknown Verified 04/23/23 07:52 Childhood Surgical - Exam Osteopathic Statement: *. No significant issues noted on an osteopathic structural exam other than those noted in the History and Physical/Consult. Vital Signs Temp Pulse Resp BP Pulse Ox 98.6 F 76 18 164/103 99 04/23/23 06:44 04/23/23 06:44 04/23/23 06:44 04/23/23 06:44 04/23/23 06:44 - General well developed, well nourished, no distress - Eyes PERRL, normal ocular movement - ENT Head is normocephalic the face is symmetrical auricles are well-formed canals are clear nose is demonstrating a right septal deviation of the throat demonstrates extremely large amount of yellow thick purulent drainage no oral lesions are noted. I'll disease is noted. Neck shows no tumors or masses normal pinna - Respiratory normal expansion - Integumentary no rash, no growths - Neurologic normal coordination, normal sensation - Musculoskeletal normal gait, normal posture - Psychiatric oriented to time, oriented to person, oriented to place, speech is normal, memory intact Results - Labs 04/24/23 06:02 04/24/23 06:02 Abnormal Lab Results - Last 24 Hours (Table) 04/24/23 04/24/23 Range/Units 06:02 06:02 WBC 15.30 H (4.50-10.00) X 10*3/uL Neutrophils # 13.44 H (1.80-7.70) X 10*3/uL Eosinophils # 0 L (0.04-0.35) X 10*3/uL Anion Gap 14.00 H (4.00-12.00) mmol/L Glucose 111 H (70-110) mg/dL Diabetes panel 04/24/23 04/24/23 Range/Units 06:02 06:02 Sodium 138 (135-145) mmol/L Potassium 4.8 (3.5-5.5) mmol/L Chloride 101 (96-109) mmol/L Carbon Dioxide 23.0 (21.6-31.8) mmol/L BUN 17.3 (9.0-27.0) mg/dL Creatinine 0.9 (0.6-1.5) mg/dL Glucose 111 H (70-110) mg/dL Hemoglobin A1c 5.4 (<=6.0) % Calcium 9.8 (8.7-10.3) mg/dL Calcium panel 04/24/23 Range/Units 06:02 Calcium 9.8 (8.7-10.3) mg/dL Pituitary panel 04/24/23 Range/Units 06:02 Sodium 138 (135-145) mmol/L Potassium 4.8 (3.5-5.5) mmol/L Chloride 101 (96-109) mmol/L Carbon Dioxide 23.0 (21.6-31.8) mmol/L BUN 17.3 (9.0-27.0) mg/dL Creatinine 0.9 (0.6-1.5) mg/dL Glucose 111 H (70-110) mg/dL Calcium 9.8 (8.7-10.3) mg/dL Adrenal panel 04/24/23 Range/Units 06:02 Sodium 138 (135-145) mmol/L Potassium 4.8 (3.5-5.5) mmol/L Chloride 101 (96-109) mmol/L Carbon Dioxide 23.0 (21.6-31.8) mmol/L BUN 17.3 (9.0-27.0) mg/dL Creatinine 0.9 (0.6-1.5) mg/dL Glucose 111 H (70-110) mg/dL Calcium 9.8 (8.7-10.3) mg/dL Assessment and Plan (1) Noninvasive fungal sinusitis Current Visit: Yes Status: Acute Code(s): B49 - UNSPECIFIED MYCOSIS; J32.9 - CHRONIC SINUSITIS, UNSPECIFIED SNOMED Code(s): 620361665979712 (2) Allergic rhinitis due to mold Current Visit: Yes Status: Acute Code(s): J30.89 - OTHER ALLERGIC RHINITIS SNOMED Code(s): 37247585946420449 (3) Posterior rhinorrhea Current Visit: Yes Status: Acute Code(s): J34.89 - OTHER SPECIFIED DISORDERS OF NOSE AND NASAL SINUSES SNOMED Code(s): 89623999 (4) Dysphagia Current Visit: Yes Status: Acute Code(s): R13.10 - DYSPHAGIA, UNSPECIFIED SNOMED Code(s): 84107984 Plan: The patient's postnasal drainage appears to be primarily from a left-sided noninvasive ALLERGIC fungal sinusitis. Examination including nasal endoscopy and fiberoptic nasopharyngolaryngoscope cannot find any source of bleeding. The adenoid tissue was cryptic but no signs of any ulcers or masses noted. The nasopharynx, oropharynx and hypopharynx shows no signs of any ulcers or mucosal abnormalities. Postnasal drainage is thickened profuse from his sinusitis. Severe right septal deviation is also noted. I'm recommending follow-up on outpatient basis with ALLERGY testing and a trial of antibiotics, Flonase nasal spray and nasal irrigations. If not improved the patient would be an excellent candidate for sinonasal surgery. Septoplasty, maxillary antrostomy with removal of the mycetoma and turbinate surgery would be strongly indicated if he fails medical therapy. I'm recommending follow-up after discharge at my office. Since we cannot find the etiology for his swallowing issues, modified barium swallow is also to be ordered. Patient knows my address and will follow up with me after discharge. His place of work as a large amount of chemicals which can exacerbate nasal swelling. He is to avoid those chemicals if possible. Time with Patient: Greater than 30
--- NOTE | 2023-04-24 18:28 | P.OP ---
Date of Procedure: 04/24/23 Preoperative Diagnosis: Posterior rhinorrhea Nasal congestion Dysphagia Postoperative Diagnosis: Same Procedure(s) Performed: Flexible fiberoptic nasal endoscopy Flexible fiberoptic laryngoscopy Anesthesia: none Surgeon: Alberto Perales Estimated Blood Loss (ml): 0 Pathology: none sent Condition: stable Disposition: no change Indications for Procedure: Patient complains of postnasal drainage, sinus issues, nasal congestion and intermittent blood in his throat. He has a swallowing issue is also problematic. Examination of the nose and nasopharynx oropharynx and hypopharynx is indicated Operative Findings: patient is a right septal deviation. The left ostium complex demonstrates a profuse amount of thick and viscous yellow drainage. The adenoid left tissue of the nasopharynx his cryptic. No signs of any tumors or masses of the nasopha rynx oropharynx or hypopharynx Description of Procedure: an EF type GP nasopharyngoscope was inserted into the patient's nose bilaterally with care to avoid any trauma to the mucosa. Patient has a right septal deviation anteriorly. Bilaterally the nose was examined with 3 passes there is no signs of any tumors polyps or masses. The ostomy complexes on the left shows a large amount of thick purulent yellow drainage. Nasopharynx shows some cryptic changes to the lymph tissue and no ulcerations or tumors are noted. We then proceeded on and did a laryngoscopy and the entire oropharynx was evaluated and there is no signs of any tumors or masses. The hypopharynx demonstrated thick yellow drainage but no pathology of the vocal cords, lateral pharynx, base of tongue, vallecula, epiglottis, postcricoid space were laryngeal introitus. She is a large amount of thick viscous yellow drainage noted from the left-sided sinuses was seen.
[2023-04-24] MEDS ORDERED: LEVOFLOXACIN 500 MG TAB PO SCH (19:00)
[2023-04-25 07:37] VITALS: RESP 16
[2023-04-25] MEDS: IPRATROPIUM-ALBUTEROL 3 ML NEB INHALATION SCH ×3 (08:07→14:09)
[2023-04-25] MEDS: PANTOPRAZOLE 40 MG TABLET PO SCH (08:35)
[2023-04-25] MEDS: ENOXAPARIN 40 MG/0.4 ML SYRINGE SQ SCH (08:35)
[2023-04-25] MEDS: ALPRAZolam 0.5 MG TAB PO PRN (08:37)
[2023-04-25 09:04] LABS: Chol/HDL Ratio 3.97 Ratio; LDL Cholesterol,Calculated 102.7 mg/dL (0.0-131.0)
[2023-04-25] MEDS: BUPRENORPHINE-NALOX 8-2 MG TAB 1 EACH TAB.SUBL SL SCH (09:19)
--- NOTE | 2023-04-25 09:57 | CA ---
Transthoracic Echo Report Name: Luis Terry Age: 48 Gender: M : 1975 Exam Date: 04/24/2023 11:22 Exam Location: [place] [facility] Ht (in): 72 Wt (lb): 200 Ordering Physician: Elliot Ramon MD Attending/Referring Phys: [employer] And Promotions Coordinator Luz Pitts RDCS Procedure CPT: Indications: dyspnea Cardiac Hx: Technical Quality: Good Contrast 1: Total Dose (mL): Contrast 2: Total Dose (mL): MEASUREMENTS (Male / Female) Normal Values 2D ECHO LV Diastolic Diameter PLAX 4.1 cm 4.2 - 5.9 / 3.9 - 5.3 cm LV Systolic Diameter PLAX 3.0 cm IVS Diastolic Thickness 1.2 cm 0.6 - 1.0 / 0.6 - 0.9 cm LVPW Diastolic Thickness 1.3 cm 0.6 - 1.0 / 0.6 - 0.9 cm LV Relative Wall Thickness 0.6 RV Internal Dim ED PLAX 2.8 cm LA Systolic Diameter LX 3.5 cm 3.0 - 4.0 / 2.7 - 3.8 cm LV Diastolic Volume MOD 4C 165.2 cm??? LV Systolic Volume MOD 4C 69.2 cm??? LV Ejection Fraction MOD 4C 58.1 % LV Cardiac Index MOD 4C 2799.6 cm???/min???m??? LV Diastolic Length 4C 8.9 cm LV Systolic Length 4C 7.1 cm LV Diastolic Volume MOD 2C 100.0 cm??? LV Systolic Volume MOD 2C 36.5 cm??? LV Ejection Fraction MOD 2C 63.5 % LV Cardiac Index MOD 2C 1852.2 cm???/min???m??? LV Diastolic Length 2C 9.0 cm LV Systolic Length 2C 6.9 cm LA Volume 56.0 cm??? 18 - 58 / 22 - 52 cm??? M-MODE Aortic Root Diameter MM 3.9 cm MV E Point Septal Separation 0.6 cm AV Cusp Separation MM 2.7 cm DOPPLER AV Peak Velocity 130.7 cm/s AV Peak Gradient 6.8 mmHg MV Area PHT 2.8 cm??? Mitral E Point Velocity 75.6 cm/s Mitral A Point Velocity 68.6 cm/s Mitral E to A Ratio 1.1 MV Deceleration Time 272.6 ms MV E' Velocity 9.0 cm/s Mitral E to MV E' Ratio 8.4 TR Peak Velocity 197.1 cm/s TR Peak Gradient 15.5 mmHg Right Ventricular Systolic Press 20.4 mmHg PV Peak Velocity 109.4 cm/s PV Peak Gradient 4.8 mmHg FINDINGS Left Ventricle Left ventricular ejection fraction is estimated at 55-60 %. Left ventricular cavity size normal. Mildly increased septal wall thickness. Right Ventricle Normal right ventricular size. Right ventricular systolic pressure within normal limits. Right Atrium Normal right atrial size. Left Atrium Normal left atrial size. Mitral Valve Structurally normal mitral valve. Trace mitral regurgitation. Aortic Valve Trileaflet aortic valve. No aortic valve stenosis or regurgitation. Tricuspid Valve Structurally normal tricuspid valve. Trace to mild tricuspid regurgitation. Pulmonic Valve Structurally normal pulmonic valve. Trace to mild pulmonic regurgitation. Pericardium No pericardial effusion. Aorta Mild aortic dilatation at the level of the sinotubular junction 39 mm CONCLUSIONS Normal LV size and systolic function Normal RV size and systolic function normal 2-D echo Previewed by: Dr. Norberto Narvaez MD (Electronically Signed) Final Date: 25 April 2023 09:56
--- NOTE | 2023-04-25 10:04 | P.PN ---
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 He has a past medical history of gastroesophageal reflux disease. We have been asked to evaluate the patient for EKG changes and exertional dyspnea. Patient denies having any chest pain. He states for the past 4 months he's had difficulty breathing with shortness of breath and more positional. He feels like he has a lump sensation in his throat. He has difficulty breathing with ambulation. Breathing is positional and he needs to lean forward in order to breathe normally. He denies having any cough. No palpitations. No lightheadedness or dizziness.patient's states he has been on multiple courses of prednisone for sinus problems. He is scheduled to see ENT today. He is also followed by pulmonary medicine and is scheduled for EGD today with Dr. Yadav for difficulty swallowing. EKG sinus rhythm with T-wave inversions in the inferior leads Chest x-ray: no acute process CT of the chest COPD with minimal emphysema. Mild dependent atelectasis. Otherwise no acute process. CT sinuses moderate to severe chronic left maxillary sinus disease. Correlate f or Aspergillus infection. Scattered mild chronic ethmoid sinus disease. Septal deviation. CBC normal limits. Carbon monoxide 1.1. INR 1.0, d-dimer 0.24. Sodium 134, potassium 3.5, BUN 14 creatinine 0.79. Lactic acid 3.3 followed by 1.1. Troponin negative 1. Liver function tests normal. ProBNP 60. Influenza A, influenza B, RSV, Covid 19 not detected. Home cardiac medications: None 04/25 Patient is seen today in follow-up. Yesterday, patient underwent EGD and scope with ENT. Echocardiogram reveals normal LV size and function. Blood pressure 118/74, heart rate in the 50s to 70s. Patient states he is feeling a little bit better regarding breathing today. He states he has ambulated in the hallway as well. Physical examination: Gen: This is a 48-year-old male. He is resting in a chair. He appears to be comfortable. VS: reviewed HEENT: Head is atraumatic, normocephalic. Pupils equal, round. Sclerae is anicteric. LUNGS: Clear to auscultation. No wheezes or rhonchi. No intercostal retractions. HEART: Regular rate and rhythm. No murmur. EXTREMITIES: No pedal edema. No calf tenderness. NEUROLOGICAL: Patient is awake, alert and oriented x3. Assessment: EKG changes with T-wave inversion in the inferior leads Difficulty breathing, followed by pulmonary medicine Dysphagia, status post EGD Chronic sinusitis, possible Aspergillus infection on CAT scan Plan: No further cardiac workup at this time. Patient may follow-up in the office with Dr. Narvaez in 4 weeks. Nurse practitioner note has been reviewed, I agree with documented findings and plan of care. Patient was seen and examined. Objective - Vital Signs Vital signs: Vital Signs Temp 97.6 F 04/25/23 07:00 Pulse 66 04/25/23 08:07 Resp 16 04/25/23 07:00 BP 118/74 04/25/23 07:00 Pulse Ox 96 04/25/23 07:00 FiO2 Intake & Output 04/24/23 04/25/23 04/25/23 18:59 06:59 18:59 Intake Total 300 Balance 300 Intake: IV 300 Other: # Voids 2 2 - Labs CBC & Chem 7: 04/24/23 06:02 04/24/23 06:02 Labs: Abnormal Lab Results - Last 24 Hours (Table) 04/24/23 04/24/23 Range/Units 06:02 06:02 WBC 15.30 H (4.50-10.00) X 10*3/uL Neutrophils # 13.44 H (1.80-7.70) X 10*3/uL Eosinophils # 0 L (0.04-0.35) X 10*3/uL Anion Gap 14.00 H (4.00-12.00) mmol/L Glucose 111 H (70-110) mg/dL
[2023-04-25 14:08] VITALS: BP 125/83; TEMP 98.3
[2023-04-25 14:20] VITALS: PULSE 68
--- NOTE | 2023-04-25 14:35 | P.PN ---
Subjective Progress Note Date: 04/25/23 CHIEF COMPLAINT: Dysphagia HISTORY OF PRESENT ILLNESS: Patient status post EGD revealing mild gastritis. Patient scheduled for modified barium swallow study today. He has been seen by ENT service and had nasal endoscopy done being treated for a fungal sinusitis. PHYSICAL EXAM: VITAL SIGNS: Reviewed. GENERAL: Well-developed in no acute distress. ABDOMEN: Soft. ASSESSMENT: 1. Dysphagia 2. Mild gastritis on EGD 3. Fungal sinusitis PLAN: -Follow up on modified barium swallow -Continue regular diet -Continue PPI for gastritis Physician Sap Portal Architect note has been reviewed by physician. Signing provider agrees with the documented findings, assessment, and plan of care. Objective - Vital Signs Vital signs: Vital Signs Temp 98.3 F 04/25/23 14:06 Pulse 68 04/25/23 14:20 Resp 16 04/25/23 14:06 BP 125/83 04/25/23 14:06 Pulse Ox 97 04/25/23 14:06 FiO2 Intake & Output 04/24/23 04/25/23 04/25/23 18:59 06:59 18:59 Intake Total 300 Balance 300 Intake: IV 300 Other: # Voids 2 2 1 - Labs CBC & Chem 7: 04/24/23 06:02 04/24/23 06:02 Labs: Abnormal Lab Results - Last 24 Hours (Table) 04/25/23 Range/Units 05:10 Triglycerides 186.00 H (0.00-149.00) mg/dL
--- NOTE | 2023-04-25 16:04 | P.DS ---
Providers Date of admission: 04/23/23 09:20 Expected date of discharge: 04/25/23 Attending physician: Jatin Lundberg MD Consults: 04/23/23 09:20 Consult Physician Routine Consulting Provider: Marjorie Vasquez Consult Reason/Comments: dyspnea of unknown etiology Do you want consulting provider notified?: Yes 04/23/23 10:26 Consult Physician Routine Consulting Provider: Devin Yadav Consult Reason/Comments: difficulty swallowing, feels like lump in upper chest Do you want consulting provider notified?: Already Contacted 04/23/23 14:41 Consult Physician Routine Consulting Provider: Alberto Perales Consult Reason/Comments: deviated septum, difficulty breathing Do you want consulting provider notified?: Yes 04/23/23 17:44 Consult Physician Routine Consulting Provider: Norberto Narvaez Consult Reason/Comments: EKG changes, exertional dyspnea Do you want consulting provider notified?: Yes Primary care physician: Tommy Aldana DO Hospital Course: Discharge Diagnosis: Complex fungal sinusitis with septal deviation Shortness of breath, likely secondary to nasal septal deviation and complex fungal sinusitis. Per recommendations of the ENT, patient discharged home on Levaquin 500 mg daily for an additional 8 days to total a treatment course of 10 days of antibiotic treatment. Patient to follow-up outpatient with ENT in one week with plans to schedule for further sinus surgery. Exertional dyspnea EKG changes, T-wave inversion in inferior leads. Patient evaluated by blind lacer and echocardiogram was completed showing a preserved EF of 55-60% with no significant valvular structural abnormalities. Cardiology recommending no further cardiac workup and outpatient follow-up in our office in 4 weeks. History of asthma and concerns of underlying COPD, Recommend outpatient follow- up with irish moss bleacher once fully treated for complex fungal sinusitis and surgical repair of septal deviation. Patient will need PFTs completed. History of nicotine dependence, quit smoking 11 years ago Dysphasia and odynophagia. Patient underwent EGD found to have mild gastritis. Biopsies taken. Patient to continue with Protonix 40 mg daily and started on Carafate 1 g twice daily. In addition patient underwent barium swallow study with ENT which was verbally reported as normal findings. Patient to follow-up outpatient with ENT as well as general surgery. Hospital Course: Patient is a very pleasant 48-year-old male with a past medical history of asthma and former nicotine use. He presented to the emergency department with a chief complaint of shortness of breath and dysphagia. Patient reports the symptoms began approximately 4 months ago and progressively worsened. Patient reports shortness of breath at rest and worsening with exertion and/or position. In addition patient reports feeling as though something is stuck in his throat and/or chest described feeling as a lump that has resulted in difficulty swallowing as well as painful swallowing at times. He underwent full evaluation in the emergency department. EKG was completed showing sinus rhythm at 66 bpm with T-wave inversion in inferior leads 2, 3, and aVF and when compared to EKG completed 12/28/22 T-wave inversion was only present in lead III. Labs were completed and reviewed. CBC unremarkable. Coagulation profile normal findings including d-dimer of 0.24. BMP showing mild hyponatremia with sodium of 134. Glucose 142. Liver enzymes unremarkable. Troponin normal findings at less than 0.012 and a proBNP of 60 and lactic acid elevated at 3.3. Influenza A, influenza B, RSV, and Covid were all negative. Chest x-ray negative for acute cardiopulmonary process. CT chest showing minimal septal emphysema in the upper lungs and signs of COPD along with mild dependent atelectasis. Patient was admitted under our services of consultation to pulmonology, cardiology, and g eneral surgery. Patient was evaluated by irish moss bleacher and a CT sinuses was ordered. CT sinuses showing moderate to severe chronic left maxillary sinus disease with associated calcifications in the area of partial opacification concerning for possible superimposed Aspergillus infection with scattered mild chronic ethmoid sinus disease and leftward nasal septal deviation. Consult was placed to ENT. Patient underwent EGD with Dr. Yadav which revealed mild gastritis and a biopsy of the antrum was taken at that time. General surgery recommending continue Protonix 40 mg daily. Patient evaluated by blind lacer and echocardiogram was completed showing a preserved EF of 55-60% with no significant valvular structural abnormalities. Cardiology recommending no further cardiac workup and outpatient follow-up in our office in 4 weeks. Patient evaluated by ENT and underwent fiberoptic nasal endoscopy and laryngoscopy along with barium swallow study. Patient was found to have complex fungal sinusitis with right sided septal deviation. Patient started on Levaquin 500 mg daily. Patient received 2 doses during hospitalization and being discharged home on an additional 8 days of Levaquin to complete a treatment course of 10 days of antibiotic therapy. Patient medically stable for discharge at this time. He is to follow up outpatient with his PCP, ENT, irish moss bleacher, blind lacer, and general surgeon. Physical exam: Vital signs reviewed and stable. General: Nontoxic, no distress and appears stated age. Derm: Skin warm and dry, normal coloration for ethnicity. Head: Atraumatic, normocephalic and symmetric. Eyes: EOMs intact, no lid lag, and anicteric sclera Mouth: no lip lesions, mucus membranes moist Cardiovascular: regular rate and rhythm with normal S1S2, no murmur, positive posterior tibial pulses bilaterally, and cap refill < 2 seconds. Lungs: Respirations even, regular, and unlabored on room air. Lungs CTA bilaterally, no rhonchi, no rales, no wheezing, and no accessory muscle usage. Abdominal: soft, nontender to palpation, no guarding, no appreciable organomegaly Ext: ROM intact. No gross muscle atrophy, no edema, no contractures Neuro: Speech clear, face symmetrical and CN II-XII grossly intact with no noted focal neuro deficits Psych: Alert and oriented to person, place, time, and situation. Appropriate and pleasant affect. A total of 36 minutes of time were spent preparing this complex discharge summary. Pt was discharged on 04/25/23 at 3:26 PM. Patient was seen independently by Nurse Practitioner. This document was prepared using [employer] dictation software. Please allow for errors in hot die press feeder while rare they do occur. Mak Vega NP rendered care for this patient independently, reviewed the findings and plan as documented in the note above. I did not physically speak with or examine the patient on this date. Patient Condition at Discharge: Stable Plan - Discharge Summary Discharge Rx Participant: No New Discharge Prescriptions: New Fluticasone Nasal [place] [Flonase Nasal Bergoo] 2 spray EA NOSTRIL HS 30 Days #1 each Albuterol Inhaler [Ventolin Hfa Inhaler] 2 puff INHALATION Q6H PRN #1 each PRN Reason: Shortness Of Breath Or Wheezing ALPRAZolam [Xanax] 0.5 mg PO QID PRN #12 tab PRN Reason: Anxiety Levofloxacin [Levaquin] 500 mg PO Q24H 8 Days #8 tab Sucralfate [Carafate] 1 gm PO BID 30 Days #60 tab Continue Buprenorphine-Nalox 8-2 mg Tab [Suboxone 8-2 mg Tab] 1 tab SUBLINGUAL BID Pantoprazole [Protonix] 40 mg PO DAILY Discharge Medication List Buprenorphine-Nalox 8-2 mg Tab [Suboxone 8-2 mg Tab] 1 tab SUBLINGUAL BID 04/23/23 [History] Pantoprazole [Protonix] 40 mg PO DAILY 04/23/23 [History] ALPRAZolam [Xanax] 0.5 mg PO QID PRN #12 tab 04/25/23 [Rx] Albuterol Inhaler [Ventolin Hfa Inhaler] 2 puff INHALATION Q6H PRN #1 each 04/25/23 [Rx] Fluticasone Nasal Bergoo [Flonase Nasal Bergoo] 2 spray EA NOSTRIL HS 30 Days #1 each 04/25/23 [Rx] Levofloxacin [Levaquin] 500 mg PO Q24H 8 Days #8 tab 04/25/23 [Rx] Sucralfate [Carafate] 1 gm PO BID 30 Days #60 tab 04/25/23 [Rx] Follow up Appointment(s)/Referral(s): Devin Yadav MD [Medical Doctor] - 1 Week Alberto Perales DO [Doctor of Osteopathic Medicine] - 1 Week Tommy Aldana DO [Primary Care Provider] - 1-2 days Marjorie Vasquez MD [STAFF PHYSICIAN] - 1 Week Patient Instructions/Handouts: Sinusitis (GEN) Activity/Diet/Wound Care/Special Instructions: Activity: As tolerated. Take breaks as needed. Diet: Heart healthy and carb consistent diet. Avoid salts, or foods with hidden salts such as canned or boxed foods and frozen dinners. Extra salt makes your heart work harder and traps the fluid in your body for longer. Special Instructions: Take all of your medications as directed and remember to keep all of your doctor's appointments and follow-up as needed. Thank you for allowing us to participate in your care, it was truly a pleasure having you for our patient!!! Discharge Disposition: HOME SELF-CARE
--- NOTE | 2023-04-25 18:03 | P.PN ---
Subjective Progress Note Date: 04/25/23 This is a 48-year-old male patient was having shortness of breath for the past 4 months that his breathing has been progressively getting worse. He shortness of breath is associated base other symptoms including difficulties in swallowing, difficulties in breathing through his nose and drainage, and episodes of fatigue and weakness and feeling diaphoretic. He also has discomfort across his chest mainly anterior and he feels better when he needs to the front. He is currently having difficulties to the point where he states that he is unable to do her activities of day-to-day life. Walking short distances such as on the make this patient short of breath and very fatigued and tired. He feels that he cannot catch his breath. He also states that his throat is irritated and he has a lump in his back of his throat and is having difficulties also in swallowing. No recurrent pneumonias. He is a nonsmoker. No 71 chronic lung disease. No pleurisy. No hemoptysis. No swelling lower extremity is. Does not utilize any form of respiratory medications or inhalers. 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 He has been infected with Covid 19 in the past and his current vital screening including Covid 19, RSV and influenza were all negative. His current pulse ox is 99% on room air oxygen. He does not desaturate with activity. Rest of the blood work shows that the risk of 9.9, hemoglobin is 14.4, d-dimer is at 0.24 in the coagulation profile was normal. His lactic acid level was at 3.3 at time of admission dropped down to 1.1. Electrolytes are normal. Liver function tests are normal. His chest x-rays within normal limits. CT angiogram is negative. EKG showing normal sinus rhythm. The patient undergone an echocardiogram and a cardiac stress test approximately 2 years ago and did fine without any major difficulties. He has no fever. No chills. No sputum production. No hemoptysis. No other complaints otherwise. On today's evaluation of a 2022, the patient's condition is essentially unchanged. EGD was completed. Findings of essentially benign. Abdomen is level was low. Meanwhile, a CAT scan of the sinuses was obtained and the patient was found to have moderate to severe chronic left regular sinus disease and there was associated calcification within the area with partial opacification. This always raises the concern for Aspergillus infection. There is also scattered mild chronic ethmoid sinus disease and the septal deviation. ENT consultation has been obtained. His blood work today shows a white second of 15.3 with a hemoglobin of 14, electrolytes are normal, renal function is normal. On 04/25/2023, the patient is stable. The patient underwent an ENT evaluation. The patient was found to have chronic maxillary sinusitis with possibility of chronic infection including possibility of a fungal sinus infection. The patient will need a functional endoscopic sinus surgery on outpatient basis. He was started on Flonase, nasal saline rinses and antibiotics in the form of Levaquin for now. His IgE Aspergillus titers were negative. Sedimentation rate is only at 7. Objective - Vital Signs Vital signs: Vital Signs Temp 98.3 F 04/25/23 14:06 Pulse 68 04/25/23 14:20 Resp 16 04/25/23 14:06 BP 125/83 04/25/23 14:06 Pulse Ox 97 04/25/23 14:06 FiO2 Intake & Output 04/24/23 04/25/23 04/25/23 18:59 06:59 18:59 Intake Total 300 Balance 300 Intake: IV 300 Other: # Voids 2 2 1 - Exam The patient appeared well nourished and normally developed. Vital signs as documented. Head exam is unremarkable. No scleral icterus or corneal arcus noted. Neck is without jugular venous distension, thyromegaly, or carotid b ruits. Carotid upstrokes are brisk bilaterally. Lungs are clear to auscultation and percussion. Cardiac exam reveals the PMI to be normally sized and situated. Rhythm is regular. First and second heart sounds normal. No murmurs, rubs or gallops. Abdominal exam reveals normal bowel sounds, no masses, no organomegaly and no aortic enlargement. Extremities are nonedematous and both femoral and pedal pulses are normal.Examination of the skin revealed no evidence of significant rashes, suspicious appearing nevi or other concerning lesions.Neurologically, the patient is awake and alert and the patient does not have any focal neurological deficit. Cranial nerves are essentially intact. - Labs CBC & Chem 7: 04/24/23 06:02 04/24/23 06:02 Labs: Abnormal Lab Results - Last 24 Hours (Table) 04/25/23 Range/Units 05:10 Triglycerides 186.00 H (0.00-149.00) mg/dL Assessment and Plan Plan: Subacute shortness of breath, unexplained by physical findings. No identifiable pulmonary pathology at this point in time. Chest x-ray, CT of the chest, and lung examination are all within normal limits. No signs of any oxygen desaturations. EKG is within normal limits. Previous cardiac workup that was done on 11/01/2020 including an echocardiogram and a cardiac stress test were all within normal limits. The patient back then had a mild to moderate degree of mitral regurgitation. Blood work is essentially within normal limits. 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 Chronic sinus infection and is experiencing systemic illness and one concern is maxillary sinus infection based on the CAT scan findings. Echo was within normal limits and this was repeated during this current hospitalization. ENT consultation was done. Dysphagia, etiology is not clear and the modified barium swallow that was done on 03/19/2023 was within normal limits. EGD is normal Difficulties in breathing through his nose and nasal septal deviation. Rule secondary to systemic effects of chronic sinusitis. 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 Rule out Aspergillus infection. Scattered mild chronic ethmoid sinus disease. Plan Repeat echocardiogram was within normal limits O CAT scan of the sinuses reviewed ENT consultation was done and the patient will need a functional endoscopic sinus surgery on outpatient basis Continue nasal saline rinses, Flonase and Levaquin Check Aspergillus titers and IgG titers are negative Check sedimentation rate, low at 7 check carbon monoxide level was normal Check heavy metal profile pending General surgery to evaluate the swallowing the patient underwent an EGD that showed mild gastritis We'll continue to follow Discharge today to be followed up on outpatient basis
[2023-04-25] MEDS ORDERED: FLUTICASONE 50MCG/SPRAY NASAL 16GM EA NOSTRIL SCH (21:00)
--- NOTE | 2023-04-26 11:11 | FL ---
Modified barium swallow. HISTORY: Dysphagia. Modified barium swallow was performed with the department of speech pathology. The patient was prese nted with various consistencies of barium. There is no evidence for aspiration or penetration. Full report is to follow from the department of speech pathology. Impression: Normal study.
[2023-04-30 07:43] LABS: Arsenic Whole Blood <3 mcg/L (<23); Mercury Whole Blood <5 mcg/L (<OR=10)
== END 2023-04-25 16:20 | disposition home or self-care (01) ==
LOC: EC 06:44 → 6NMEDSUR 09:20
PROVIDERS: ADMIT Family Medicine; ATTEND Family Medicine
DX: J32.2 Chronic ethmoidal sinusitis (principal); J32.0 Chronic maxillary sinusitis; J34.2 Deviated nasal septum; J43.9 Emphysema, unspecified; E86.0 Dehydration; K29.70 Gastritis, unspecified, without bleeding; R13.10 Dysphagia, unspecified; R47.02 Dysphasia; K21.9 Gastro-esophageal reflux disease without esophagitis; E87.1 Hypo-osmolality and hyponatremia; Z87.891 Personal history of nicotine dependence; Z20.822 Contact with and (suspected) exposure to COVID-19; Z87.01 Personal history of pneumonia (recurrent); Z79.899 Other long term (current) drug therapy; Z88.0 Allergy status to penicillin; Z82.5 Family history of asthma and other chronic lower respiratory diseases
CPT/HCPCS: 96372 ×2; 96374; 96361; 99285; 36415; 94640 ×6; 93005; 93306; 92611; 85379; 86606; 83655 ×2; 88305; 83880; 80061; 80053; 80048; 85652; 82375; 83605; 84484; 85025 ×2; 85610; 85730; 82175; 83825 ×2; 82570; 86003; 86038; 83036; 87636; 74230; 71046; 71260; 70486; 43239; 31575; 31231; G0378 ×3; J2930; J1650 ×2; J2704; Q9967

== ENCOUNTER 2023-05-14 01:00 | Emergency (ER) | payer BC ==
[2023-05-14 01:06] VITALS: TEMP 98
[2023-05-14] MEDS ORDERED: KETOROLAC 15 MG/ML 1 ML VIAL IM STA (02:12)
--- NOTE | 2023-05-14 02:15 | US ---
EXAM: US Duplex Right Lower Extremity Arteries CLINICAL HISTORY: ITS.REASON US Reason: pain, recent cath TECHNIQUE: Real-time duplex ultrasound scan of the right lower extremity arteries integrating B-mode two-dimensional vascular structure, Doppler spectral analysis and color flow Doppler imaging. COMPARISON: No relevant prior studies available. IMPRESSION: No visualized pseudoaneurysm, flow-limiting stenosis, or hematoma within the right groin.
[2023-05-14 02:26] VITALS: BP 117/76; PULSE 68; RESP 20
--- NOTE | 2023-05-14 02:27 | ED ---
General Adult HPI - General Chief complaint: Recheck/Abnormal Lab/Rx Stated complaint: Swell at cath Site, Post-Op Complications Source: patient Mode of arrival: ambulatory - History of Present Illness Initial comments: 48-year-old male presenting to the ED with a chief complaint of groin pain. Patient had recent ENT procedure. During this patient was noted to have EKG changes and patient had a cardiac cath yesterday via right femoral at approximately 1 PM. Since then, patient notes swelling and pain in the right side of his groin. Denies chest pain shortness breath. No other complaint. - Related Data Home Medications Medication Instructions Recorded Confirmed Buprenorphine-Nalox 8-2 mg Tab 1 tab SL BID 04/23/23 05/11/23 [Suboxone 8-2 mg Tab] Pantoprazole [Protonix] 40 mg PO DAILY 04/23/23 05/11/23 Albuterol Inhaler [Ventolin Hfa 2 puff INHALATION RT-QID PRN 05/11/23 05/11/23 Inhaler] Albuterol Nebulized [Ventolin 2.5 mg INHALATION RT-QID 05/11/23 05/11/23 Nebulized] Fluticasone/Umeclidin/Vilanter 1 puff INHALATION RT-DAILY 05/11/23 05/11/23 [Trelegy Ellipta 200-62.5-25] Previous Rx's Medication Instructions Recorded ALPRAZolam [Xanax] 0.5 mg PO QID PRN #12 tab 04/25/23 Fluticasone Nasal [place] [Flonase 2 spray EA NOSTRIL HS 30 Days #1 04/25/23 Nasal [place]] each Sucralfate [Carafate] 1 gm PO BID 30 Days #60 tab 04/25/23 Doxycycline [Vibramycin] 100 mg PO BID cap 05/13/23 Allergies Allergy/AdvReac Type Severity Reaction Status Date / Time Penicillins Allergy Unknown Verified 05/14/23 01:06 Childhood Review of Systems ROS Statement: Those systems with pertinent positive or pertinent negative responses have been documented in the HPI. ROS Other: All systems not noted in ROS Statement are negative. Past Medical History Past Medical History: Asthma, COPD, Pneumonia History of Any Multi-Drug Resistant Organisms: None Reported Past Surgical History: Heart Catheterization, Orthopedic Surgery Additional Past Surgical History / Comment(s): Skin graft left foot, sinus surgery 05/2023 Past Anesthesia/Blood Transfusion Reactions: No Reported Reaction Past Psychological History: No Psychological Hx Reported Smoking Status: Former smoker Past Alcohol Use History: Occasional Past Drug Use History: None Reported - Past Family History Mother Additional Family Medical History / Comment(s): cardiac arrythmia Father Family Medical History: COPD Additional Family Medical History / Comment(s): healthy still living General Exam Limitations: no limitations General appearance: alert Neck exam: Present: normal inspection Respiratory exam: Present: normal lung sounds bilaterally Cardiovascular Exam: Present: regular rate, normal rhythm GI/Abdominal exam: Present: soft Extremities exam: Present: other (Swelling of the medial upper thigh along catheter insertion site no overlying skin changes) Neurological exam: Present: alert, oriented X3 Skin exam: Present: warm, dry Course Vital Signs 05/14/23 05/14/23 01:02 02:08 Temperature 98 F Pulse Rate 74 68 Respiratory 19 20 Rate Blood Pressure 111/76 117/76 O2 Sat by Pulse 98 95 Oximetry Medical Decision Making - Medical Decision Making Was pt. sent in by a medical professional or institution (Dr. PA, S[employer]IOR [employer], urgent care, hospital, or skilled nursing...) When possible be specific @ -No Did you speak to anyone other than the patient for history (EMS, parent, family, police, friend...)? What history was obtained from this source @ -No Did you review nursing and triage notes (agree or disagree)? Why? @ -I reviewed and agree with nursing and triage notes Were old charts reviewed (outside hosp., previous admission, EMS record, old EKG, old radiological studies, urgent care reports/EKG's, skilled nursing records)? Report findings @ -Cardiac catheterization reviewed showing normal coronary arteries with good filling pressure. Differential Diagnosis (chest pain, altered mental status, abdominal pain women, abdominal pain men, vaginal bleeding, weakness, fever, dyspnea, syncope, headache, dizziness, GI bleed, back pain, seizure, CVA, palpatations, mental health, musculoskeletal)? @ -No aneurysm, inguinal hernia, hematoma, femoral hernia. Is not meant to be an all-inclusive list. EKG interpreted by me (3pts min.). @ -None X-rays interpreted by me (1pt min.). @ -None done CT interpreted by me (1pt min.). @ -None done U/S interpreted by me (1pt. min.). @ -Ultrasound reviewed by me show no evidence of hematoma or pseudoaneurysm What testing was considered but not performed or refused? (CT, X-rays, U/S, labs)? Why? @ -None What meds were considered but not given or refused? Why? @ -None Did you discuss the management of the patient with other professionals (nawaf ramirez i.e. , PA, [employer], lab, RT, psych nurse, social work professor, specialty therapist, teacher, textile technical officer, counseling case manager)? Give summary @ -No Was smoking cessation discussed for >3mins.? @ -No Was critical care preformed (if so, how long)? @ -No Were there social determinants of health that impacted care today? How? (Homelessness, low income, unemployed, alcoholism, drug addiction, transportation, low edu. Level, literacy, decrease access to med. care, long term, rehab)? @ -No Was there de-escalation of care discussed even if they declined (Discuss DNR or withdrawal of care, Hospice)? DNR status @ -No What co-morbidities impacted this encounter? (DM, HTN, Smoking, COPD, CAD, Cancer, CVA, ARF, Chemo, Hep., AIDS, mental health diagnosis, sleep apnea, morbid obesity)? @ -None Was patient admitted / discharged? Hospital course, mention meds given and route, prescriptions, significant lab abnormalities, going to OR and other pertinent info. @ -Discharge Please of-year-old male presenting S/PE cardiac catheterization presenting with right groin pain. Ultrasound shows no evidence of pseudoaneurysm or hematoma. Discharged home in stable condition. Advised supportive care. Discussed return precautions with patient who verbalizes agreement. Undiagnosed new problem with uncertain prognosis? @ -No Drug Therapy requiring intensive monitoring for toxicity (Heparin, Nitro, Insulin, Cardizem)? @ -No Were any procedures done? @ -No Diagnosis/symptom? @ -Groin pain/swelling Acute, or Chronic, or Acute on Chronic? @ -Acute Uncomplicated (without systemic symptoms) or Complicated (systemic symptoms)? @ -Uncomplicated Side effects of treatment? @ -No Exacerbation, Progression, or Severe Exacerbation? @ -No Poses a threat to life or bodily function? How? (Chest pain, [place], [place], pneumonia, PE, COPD, DKA, ARF, appy, cholecystitis, CVA, Diverticulitis, Homicidal, Suicidal, threat to staff... and all critical care pts) @ -No Disposition Clinical Impression: Groin pain Disposition: HOME SELF-CARE Condition: Good Additional Instructions: Please return to the Emergency Department if symptoms worsen or any other concerns. Is patient prescribed a controlled substance at d/c from ED?: No Referrals: Tommy Aldana DO [Primary Care Provider] - 1-2 days Time of Disposition: 02:34
== END 2023-05-14 02:55 | disposition home or self-care (01) ==
LOC: EC 01:00
DX: R10.30 Lower abdominal pain, unspecified (principal); J44.9 Chronic obstructive pulmonary disease, unspecified; Z87.891 Personal history of nicotine dependence; Z88.0 Allergy status to penicillin; Z79.51 Long term (current) use of inhaled steroids; Z79.899 Other long term (current) drug therapy
CPT/HCPCS: 93975; 93926; 99284; 96372; J1885